=== PATIENT | female | born 1945 | race Two or more races ===

== ENCOUNTER → 2024-03-14 | Outpatient (CLI) | payer OTHER, SELFPAY ==
[2024-03-14 16:46] LABS: Basophils % (Auto) 1 % (0-2.5); Eosinophils # (Auto) 0.2 Thou/mm3 (0.0-0.5); Eosinophils % (Auto) 3 % (0-10); Hematocrit 39.7 % (36.0-46.0); Immature Granulocytes % (Auto) 1 % (0-0); Immature Granulocytes Auto 0.06 Thou/mm3 (0.00-0.00); Lymphocytes # (Auto) 1.4 Thou/mm3 (1.0-4.8); Lymphocytes % (Auto) 17 % (10-50); Mean Corpuscular HGB Conc 32.7 g/dl (31.0-37.0); Mean Corpuscular Hemoglobin 28.6 pg (25.0-35.0); Mean Corpuscular Volume 87 fL (80-100); Monocytes # (Auto) 0.8 Thou/mm3 (0.0-0.8); Monocytes % (Auto) 10 % (0-12); Neutrophils # (Auto) 5.4 Thou/mm3 (1.8-7.7); Neutrophils % (Auto) 69 % (37-80); Nucleated Red Blood Cell % 0 /100 WBC (0); Platelet Count 264 Thou/mm3 (140-440); RDW Standard Deviation 39.1 fL (36.4-46.3); Red Blood Count 4.55 Miln/mm3 (4.00-5.20); White Blood Count 7.9 Thou/mm3 (3.6-11.0)
[2024-03-14 17:02] LABS: Alanine Aminotransferase 11 U/L (10-49); Albumin, Serum 4.1 gm/dL (3.4-4.8); Albumin/Globulin Ratio 1.6 (1.2-2.2); Alkaline Phosphatase 119 U/L (46-116); Anion Gap 6 (7-16); Aspartate Amino Transferase 14 U/L (0-34); BUN/Creatinine Ratio 16 Ratio (12-20); Bilirubin,Total 0.2 mg/dL (0.3-1.2); Blood Urea Nitrogen 16 mg/dL (9-23); Calcium 9.4 mg/dL (8.3-10.6); Calcium (Corrected) 9.4 mg/dL (8.5-10.1); Carbon Dioxide 28.6 mMol/L (20.0-31.0); Chloride 104 mMol/L (98-107); Globulin 2.5 gm/dL (2.3-3.5); Glucose 124 mg/dL (74-106); Osmolality,Calculated 279 (275-295); Sodium 139 mMol/L (136-145); Total Protein 6.6 gm/dL (5.7-8.2); eGFR 58 See Note
== END | disposition home or self-care (01) ==
LOC: COPL 15:19
PROVIDERS: PCP Internal Medicine; Referring Provider Radiology Therapeutic Radiology; Visit Provider Radiology Therapeutic Radiology
DX: C49.12 Malignant neoplasm of connective and soft tissue of left upper limb, including shoulder (principal)
CPT/HCPCS: 36415; 80053; 85025

== ENCOUNTER → 2024-03-15 | Outpatient (CLI) | payer OTHER, SELFPAY ==
--- NOTE | 2024-03-15 12:00 | XR_ITS ---
Examination: CT left upper extremity with intravenous contrast 2-D sagittal and coronal reconstructions Exam date and time: March 15, 2024 1243 hours INDICATIONS: Diagnosis neoplasm connective and soft tissue left shoulder sarcoma September 2023, persistent shoulder pain beginning 2023 CTDI:vol (mGy) 81.1 DLP: (mGycm) 1287 Technique: Multiple axial images left upper extremity Intravenous contrast administered, 60 cc Isovue-370. 2-D sagittal, coronal images obtained. Low dose protocols were performed. One or more of the following dose reduction techniques were used; automated exposure control, adjustment of the mA and/or KV according to patient size, use of iterative reconstruction technique. Findings: Irregular enhancing soft tissue mass anterior lateral to the humeral head and proximal humeral shaft, transverse dimension at least 5.4 cm, anterior posterior dimension at least 2.8 cm, cephalad caudad dimension extending from above the humeral head to the proximal shaft humerus 12.8 cm This mass does not destroying the bone the humeral head or shaft Adjacent 14 mm left axillary lymph node Numerous metastatic pulmonary nodules visualized, the largest 17 mm IMPRESSION: Irregular enhancing soft tissue tumor mass anterior lateral left upper extremity from the humeral head caudad to the proximal shaft of the humerus, 5.4 x 2.8 x 12.8 cm No definite cortical bone destruction involving the humerus Partial visualization numerous metastatic pulmonary nodules
== END | disposition home or self-care (01) ==
LOC: CCTX 11:47
PROVIDERS: PCP Internal Medicine; Referring Provider Radiology Therapeutic Radiology; Visit Provider Radiology Therapeutic Radiology
DX: D16.02 Benign neoplasm of scapula and long bones of left upper limb (principal); C78.00 Secondary malignant neoplasm of unspecified lung; C49.12 Malignant neoplasm of connective and soft tissue of left upper limb, including shoulder
CPT/HCPCS: 73201; A4649; Q9967

== ENCOUNTER 2024-03-21 08:07 | Outpatient (RCR) | payer OTHER, SELFPAY ==
--- NOTE | 2024-03-01 14:18 | CTCCONSULT_ITS ---
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 Kathrine Rubalcava MD Referring physician. Balta Elise MD Reason for consultation. 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 History of Present Illness: Patient is a 78-year-old lady who noticed while lifting several months ag o discomfort involving the left shoulder and ultrasound 11/02/2023 shows soft tissue mass with vascular ity. Preop imaging 11/19/2023 reportedly showed heterogeneous soft tissue mass and was referred to Dr Jakob Victor in [place] who performed radical resection of the left shoulder soft tissue mass 12/26 which was 6.3 cm the longest dimension. 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 According to pathology reviewed at [place] [facility] was negative corroborating no support for Albert's with other immunohistochemical support for rhabdo myosarcoma or melanoma. Given the size AJCC pT2. Pt now referred for adjuvant treatment at the [facility]. The past few weeks patient has noted a growth marble sized by the left humerus area which was brought to the attention of Dr. Elise, according to patient. Past Medical History: History of diabetes mellitus allergies Meds. Albuterol atorvastatin Flexeril glipizide Allergies none to meds Social History: Patient retired from working in schools denies smoking drinking Review of Systems: Has had pain in left arm since surgery associate with apparent recurrence. Physical Exam: General: Adequate nourished appearing lady in no acute distress HEENT: Atraumatic normocephalic extraocular intact no oral lesion no cervical or supraclavicular adilia opathy CV: Chest clear to auscultation heart regular rate and rhythm ABD: Soft no guarding or tenderness EXT: Surgical changes left shoulder area with about 4 x 5 cm tumor in the proximal lateral humerus benavides ggestive of recurrence. Tender. Assessment: 1. 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 6.3 cm longest dimension high-grade angiolymphatic invasion. PT2 2. Reportedly with close margins, clinically appears to be recurring with 2 x 3 cm tender mass in th e proximal left lateral humerus. 3. I ordered imaging studies of the shoulder and proximal humerus along with PET but I believe that a biopsy need to be done to confirm the suspected recurrence. 4. Attempted to call Dr. Elise earlier which I hope to hear from later regarding need for biopsy 5. Placed patient on tramadol as patient is having significant pain in the left shoulder arm area. 6. Dr. Hardwick medical oncologist has been consulted. Cc: Kathrine Rubalcava MD Electronically signed by: Reji Hsu MD, DABR 03/01/2024 2:16 PM
== END 2024-03-28 23:59 | disposition home or self-care (01) ==
LOC: SCTC 08:07
PROVIDERS: PCP Internal Medicine; Referring Provider Orthopaedic Surgery; Visit Provider Radiology Therapeutic Radiology
DX: C49.12 Malignant neoplasm of connective and soft tissue of left upper limb, including shoulder (principal); G89.3 Neoplasm related pain (acute) (chronic)
CPT/HCPCS: 99213; G0463

== ENCOUNTER → 2024-03-30 | Outpatient (CLI) | payer OTHER, SELFPAY ==
--- NOTE | 2024-03-30 10:15 | XR_ITS ---
EXAMINATION: PET/CT FUSION SKULL TO THIGH EXAM DATE AND TIME: March 30, 2024 1112 hours INDICATIONS: Diagnosis neoplasm connective and soft tissue left shoulder, sarcoma September 2023, staging, soft tissue mass 5.4 x 2.8 cm anterior lateral to the left humeral head and proximal humeral shaft on CT upper extremity March 15, 2024 CTDI:vol (mGy) 8.17 DLP: (mGycm) 745.91 PROCEDURE: 16.79 mCi FDG was administered intravenously To allow for distribution and uptake of radiotracer, the patient was allowed to rest quietly in a shielded room. Imaging was performed on an integrated 16-slice PET/CT scanner, with scanning from the skull base to the mid thigh. Serum blood glucose at the time of the injection was measured 174 mg/dL. CT scanning was performed without oral or intravenous contrast material. FINDINGS: Head and Neck: There is no ade hypermetabolism in the neck. The visualized portions of the brain are normal in appearance on CT. Chest: Intensely hypermetabolic soft tissue mass anterior and lateral to the left humeral head and upper left humerus again noted, at least 6.5 x 5.4 x 14 cm Numerous hypermetabolic left axillary lymph nodes, the largest 22 mm, 24 mm Numerous hypermetabolic metastatic pulmonary nodules, the largest in the left lower lobe 20 mm, as well as hypermetabolic mass in the right middle lobe 5.7 x 5.2 cm Large right pleural effusion Hypermetabolic left hilar lymphadenopathy Abdomen and Pelvis: Subtle hypermetabolic area in the posterior right lobe of the liver axial image 132, 25 mm Anterior precaval mesenteric lymphadenopathy, the largest lymph nodes 25 mm, 14 mm Musculoskeletal: Multiple hypermetabolic osseous foci including L4 T11, T10 T1, right posterior iliac bone right sacrum S1, left acetabulum, bilateral anterior pubic rami, proximal left humeral shaft IMPRESSION: Intensely hypermetabolic soft tissue mass anterior and lateral to the left humeral head and upper left humerus Metastatic left axillary lymphadenopathy Too numerous to count metastatic Hypermetabolic left hilar lymphadenopathy Large right pleural effusion amenable to thoracentesis Suspicious for hypermetabolic posterior right lobe liver lesion Metastatic precaval mesenteric lymphadenopathy Widespread osseous metastatic disease pulmonary nodules, including 5.7 x 5.2 cm pulmonary mass in the right middle lobe
== END | disposition home or self-care (01) ==
PROVIDERS: PCP Internal Medicine; Referring Provider Radiology Therapeutic Radiology; Visit Provider Radiology Therapeutic Radiology
DX: R59.0 Localized enlarged lymph nodes (principal); J90 Pleural effusion, not elsewhere classified; R22.42 Localized swelling, mass and lump, left lower limb; C78.01 Secondary malignant neoplasm of right lung; C77.3 Secondary and unspecified malignant neoplasm of axilla and upper limb lymph nodes; C49.12 Malignant neoplasm of connective and soft tissue of left upper limb, including shoulder
CPT/HCPCS: 78815; A9552

== ENCOUNTER 2024-04-01 10:51 | Inpatient (IN) | payer OTHER, MEDICARE, SELFPAY ==
[2024-04-01] VITALS (8 sets, daily range): BP systolic 110–160; BP diastolic 63–78; PULSE 97–125; RESP 18–25; TEMP 36.2–36.9; O2SAT 89–98; BMI 29.2; BMI 31.6
--- NOTE | 2024-04-01 12:33 | XR_ITS ---
Examination: PA chest single view Technique: Upright PA chest single view Exam date and time: April 01, 2024 1248 hrs. Comparison PET/CT scan March 30, 2024 Indications: SOB today, diagnosis neoplasm connective and soft tissue left shoulder, sarcoma Findings: Multiple bilateral metastatic pulmonary nodules noted, please see the PET/CT scan report March 30, 2024 Large right pleural effusion Moderate left pleural effusion Mild enlargement cardiac contour Moderate osteopenia Impression: Extensive pulmonary nodular metastatic disease Please see the PET/CT scan report March 30, 2024 Large right moderate left malignant pleural effusions
--- NOTE | 2024-04-01 12:33 | EKG_ITS ---
[facility] Test Date: 2024-04-01 Pat Name: KOBY SUTHERLAND Department: Room: - Gender: Female Clinical Psychiatrist: : 1945 Requested By: Dori Sanchez Order Number: [id number] Reading MD: Dori Sanchez Measurements Intervals [place] Rate: 129 P: 0 CT: 137 QRS: -18 QRSD: 82 T: -2 QT: 301 QTc: 441 Interpretive Statements SINUS TACHYCARDIA VOLTAGE CRITERIA FOR LVH [MEETS CRITERIA IN ONE OF: R(aVL), S(V1), R(V5), R(V5/V6)+S(V1)] POSSIBLE ANTERIOR MYOCARDIAL INFARCTION , OF INDETERMINATE AGE [30 ms Q WAVE IN V3/V4, OR R < 0.2 mV IN V4] INFERIOR MYOCARDIAL INFARCTION , PROBABLY OLD [40+ ms Q WAVE AND/OR ST/T ABNORMALITY IN II/aVF] No previous ECG available for comparison /store/S0/[id number]/ecg/[id number].pdf
--- NOTE | 2024-04-01 12:34 | PD.EDSOB ---
ED SOB =RME/HPI General Chief Complaint: Shortness of Breath/Dyspnea Stated Complaint: SOB WITH WITH HX LUNG CANCER Time Seen by Provider: 04/01/24 11:59 Arrival date/time: 04/01/24 10:51 This is a 78-year-old female that comes in with complaints of shortness of breath. 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 Preop imaging 11/19/2023 reportedly showed heterogeneous soft tissue mass and was referred to Dr. Gosia Victor in [place] who performed radical resection of the left shoulder soft tissue mass 12/27/2023 which was 6.3 cm the longest dimension. 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 According to pathology reviewed at [place] [facility] was negative corroborating no support for Albert's with other immunohistochemical support for rhabdomyosarcoma or melanoma. Given the size AJCC pT2. Pt now referred for adjuvant treatment at the cancer center. Patient has a past medical history of diabetes mellitus. Patient complains of nausea and vomiting. Related Data Allergies Allergy/AdvReac Type Severity Reaction Status Date / Time cantaloupe Allergy Intermediate Rash Verified 04/01/24 10:52 shrimp Allergy Intermediate Rash Verified 04/01/24 10:53 Course Orders Category Date Time Status Bedside COVID-19 Antigen Test NOW Care 04/01/24 12:33 Active Bedside Influenza A&B Antigen Test NOW Care 04/01/24 12:33 Active EKG (ED ONLY) *Do not use* NOW Care 04/01/24 12:34 Active EKG (ED Only) Stat Exams 04/01/24 12:33 Ordered XR chest 1V Stat Exams 04/01/24 12:33 Ordered BNP [B-Type Natriuretic Peptide] Stat Lab 04/01/24 12:33 Ordered Blood Culture (Lab) Stat Lab 04/01/24 12:33 Ordered CBC Stat Lab 04/01/24 12:33 Ordered Comprehensive Metabolic Panel Stat Lab 04/01/24 12:33 Ordered Lactate (Lactic Acid) Stat Lab 04/01/24 12:34 Ordered Procalcitonin Stat Lab 04/01/24 12:34 Ordered TSH [Thyroid Stimulating Hormone] Stat Lab 04/01/24 12:33 Ordered Troponin I Stat Lab 04/01/24 12:33 Ordered Vital Signs Vital signs: Vital Signs Temperature 98.0 F 04/01/24 12:32 Pulse Rate 125 H 04/01/24 12:32 Respiratory Rate 18 04/01/24 12:32 Blood Pressure 110/73 04/01/24 12:32 Pulse Oximetry (%) 94 L 04/01/24 12:32 Oxygen Delivery Method Room Air 04/01/24 12:32 Discharge Plan Patient/Caregiver Discharge Instructions Print Language: Yakut
--- NOTE | 2024-04-01 12:38 | PD.EDRME ---
Rapid Medical Screening Exam RME Arrival date/time: 04/01/24 10:51 This is a 78-year-old female that comes in with complaints of shortness of breath. 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 Preop imaging 11/19/2023 reportedly showed heterogeneous soft tissue mass and was referred to Dr. Gosia Victor in [place] who performed radical resection of the left shoulder soft tissue mass 12/27/2023 which was 6.3 cm the longest dimension. 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 According to pathology reviewed at [place] [facility] was negative corroborating no support for Albert's with other immunohistochemical support for rhabdomyosarcoma or melanoma. Given the size AJCC pT2. Pt now referred for adjuvant treatment at the cancer center. Patient has a past medical history of diabetes mellitus. Patient complains of nausea and vomiting. Patient denies fever and diarrhea. I have greeted and performed a focused initial assessment of this patient. Initial appropriate labs ordered at this time. A comprehensive ED assessment and evaluation of the patient and analysis of all test and completion of medical decision making process will be conducted by additional ED provider. Chief Complaint: Shortness of Breath/Dyspnea Time Seen by Provider: 04/01/24 11:59 Vital signs: Vital Signs Temperature 98.0 F 04/01/24 12:32 Pulse Rate 125 H 04/01/24 12:32 Respiratory Rate 18 04/01/24 12:32 Blood Pressure 110/73 04/01/24 12:32 Pulse Oximetry (%) 94 L 04/01/24 12:32 Oxygen Delivery Method Room Air 04/01/24 12:32
[2024-04-01] MEDS: ONDANSETRON ODT 4 MG TABRAP PO (12:53)
--- NOTE | 2024-04-01 13:29 | PC.NURSE ---
PT REPORTS THAT SHE BECAME SOB YESTERDAY, DOES HAVE HISTORY OF ASTHMA. REPORTS THAT SHE RECENTLY GOT SURGERY ON HER RIGHT ARM FOR A SARCOMA. VISITOR AT BEDSIDE ATTENTIVE AT
[2024-04-01 13:30] LABS: Lactate (Lactic Acid) 2.9 mMol/L (0.4-2.0)
[2024-04-01 13:34] LABS: Basophils % (Auto) 0 % (0-2.5); Eosinophils % (Auto) 0 % (0-10); Hematocrit 32.6 % (36.0-46.0); Hemoglobin 10.6 g/dL (12.0-16.0); Immature Granulocytes % (Auto) 1 % (0-0); Immature Granulocytes Auto 0.17 Thou/mm3 (0.00-0.00); Lymphocytes % (Auto) 6 % (10-50); Mean Corpuscular HGB Conc 32.5 g/dl (31.0-37.0); Mean Corpuscular Hemoglobin 27.5 pg (25.0-35.0); Mean Corpuscular Volume 85 fL (80-100); Monocytes # (Auto) 1.4 Thou/mm3 (0.0-0.8); Monocytes % (Auto) 9 % (0-12); Neutrophils # (Auto) 13.4 Thou/mm3 (1.8-7.7); Neutrophils % (Auto) 84 % (37-80); Nucleated Red Blood Cell % 0 /100 WBC (0); Platelet Count 480 Thou/mm3 (140-440); RDW Standard Deviation 39.6 fL (36.4-46.3); Red Blood Count 3.86 Miln/mm3 (4.00-5.20)
[2024-04-01 13:51] LABS: B-Type Natriuretic Peptide 53 pg/mL (0-100)
[2024-04-01] MEDS: SODIUM CHLORIDE 0.9% 1000 ML 1,000 ML 999 ML IV (13:53)
[2024-04-01 14:00] LABS: Alanine Aminotransferase 13 U/L (10-49); Albumin, Serum 4.2 gm/dL (3.4-4.8); Albumin/Globulin Ratio 1.4 (1.2-2.2); Alkaline Phosphatase 110 U/L (46-116); Anion Gap 10 (7-16); Aspartate Amino Transferase 12 U/L (0-34); BUN/Creatinine Ratio 16 Ratio (12-20); Bilirubin,Total 0.5 mg/dL (0.3-1.2); Blood Urea Nitrogen 14 mg/dL (9-23); Calcium 9.2 mg/dL (8.3-10.6); Calcium (Corrected) 9.2 mg/dL (8.5-10.1); Carbon Dioxide 24.1 mMol/L (20.0-31.0); Chloride 97 mMol/L (98-107); Creatinine (Component) 0.9 mg/dL (0.6-1.3); Estimated Creatinine Clearance 52.6 mL/min (>60); Globulin 2.9 gm/dL (2.3-3.5); Glucose 236 mg/dL (74-106); Osmolality,Calculated 271 (275-295); Potassium 4.3 mMol/L (3.4-5.1); Procalcitonin 0.14 ng/ml (0.0-0.49); Sodium 131 mMol/L (136-145); Thyroid Stimulating Hormone 1.96 uIU/mL (0.55-4.78); Total Protein 7.1 gm/dL (5.7-8.2); Troponin I < 0.020 ng/mL (0.0-0.045); eGFR > 60 See Note
--- NOTE | 2024-04-01 14:41 | PD.EDSOB ---
ED SOB =RME/HPI General Chief Complaint: Shortness of Breath/Dyspnea Stated Complaint: SOB WITH WITH HX LUNG CANCER Time Seen by Provider: 04/01/24 11:59 Arrival date/time: 04/01/24 10:51 This is a 78-year-old female that comes in with complaints of shortness of breath. 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 Preop imaging 11/19/2023 reportedly showed heterogeneous soft tissue mass and was referred to Dr. Gosia Victor in [place] who performed radical resection of the left shoulder soft tissue mass 12/27/2023 which was 6.3 cm the longest dimension. 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 According to pathology reviewed at [place] [facility] was negative corroborating no support for Albert's with other immunohistochemical support for rhabdomyosarcoma or melanoma. Given the size AJCC pT2. Pt now referred for adjuvant treatment at the cancer center. Patient has a past medical history of diabetes mellitus. Patient complains of nausea and vomiting. Patient denies fever and diarrhea. RME / HPI RME / HPI Narrative: 04/01/24 10:51 This is a 78-year-old female that comes in with complaints of shortness of breath. 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 Preop imaging 11/19/2023 reportedly showed heterogeneous soft tissue mass and was referred to Dr. Gosia Neal who performed radical resection of the left shoulder soft tissue mass 12/27/2023 which was 6.3 cm the longest dimension. 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 According to pathology reviewed at [place] [facility] was negative corroborating no support for Albert's with other immunohistochemical support for rhabdomyosarcoma or melanoma. Given the size AJCC pT2. Pt now referred for adjuvant treatment at the cancer center. Patient has a past medical history of diabetes mellitus. Patient complains of nausea and vomiting. Patient denies fever and diarrhea. I have greeted and performed a focused initial assessment of this patient. Initial appropriate labs ordered at this time. A comprehensive ED assessment and evaluation of the patient and analysis of all test and completion of medical decision making process will be conducted by additional ED provider. Related Data Home Medications ?Medication ?Instructions ?Recorded ?Confirmed albuterol sulfate 90 mcg/actuation 1 puff inhalation Q8HR 04/01/24 04/01/24 aerosol inhaler aspirin 81 mg chewable tablet 81 mg PO Q12H 04/01/24 04/01/24 cyclobenzaprine 5 mg tablet 5 mg PO Q12H 04/01/24 04/01/24 meloxicam 15 mg tablet 15 mg PO DAILY 04/01/24 04/01/24 Previous Rx's ?Medication ?Instructions ?Recorded amoxicillin 875 mg-potassium 1 tab PO BID 5 days #10 tabs 04/05/24 clavulanate 125 mg tablet doxycycline hyclate 100 mg capsule 100 mg PO BID 5 days #10 caps 04/05/24 hydrocodone 5 mg-acetaminophen 325 2 tab PO Q6H PRN pain (scale score 04/05/24 mg tablet 4-6) 5 days #30 tabs sennosides 8.6 mg tablet (Senna 8.6 mg PO QDAY PRN constipation 15 04/05/24 Laxative) days #15 tabs Allergies Allergy/AdvReac Type Severity Reaction Status Date / Time cantaloupe Allergy Intermediate Rash Verified 04/01/24 10:52 shrimp Allergy Intermediate Rash Verified 04/01/24 10:53 Review of Systems Review of Systems Systems Reviewed: All systems reviewed, normal except as documented Past Medical History Surgical History OTHER SURGICAL HX: Recent radical resection of left proximal upper extremity malignancy.. Social History SOCIAL: Retired from Past Medical History Comments PMH COMMENT: History of asthma bronchitis diabetes mellitus 2 ED Exam General General appearance: Present alert and in no apparent distress Head Head exam: Present atraumatic Eye Eye exam: Present normal appearance, PERRL and EOMI ENT ENT exam: Present normal exam, normal oropharynx and mucous membranes moist Neck Neck exam: Present normal inspection, full ROM and trachea midline Chest Chest inspection: Present normal inspection and symmetric chest wall rise Respiratory Respiratory exam: Present other (diminished at bases ) Cardiovascular Cardiovascular exam: Present regular rate and normal rhythm Abdominal Exam Abdominal exam: Present soft Extremities Exam Extremities exam: Present normal inspection and full ROM Back Exam Back exam: Present normal inspection and full ROM Neurological Exam Neurological exam: Present alert, oriented X3 and CN II-XII intact Psychiatric Psychiatric exam: Present normal affect and normal mood Skin Skin exam: Present warm, dry, intact and normal color Course Quality Measures none Orders Category Date Time Status Admit to Inpatient Status Routine Admission 04/01/24 15:02 Active Bedside Blood Glucose ACHS Care 04/01/24 14:59 Completed Bedside COVID-19 Antigen Test NOW Care 04/01/24 12:33 Completed Bedside Influenza A&B Antigen Test NOW Care 04/01/24 12:33 Completed COVID-19 Screening Questionnaire NOW Care 04/01/24 14:56 Completed Decision to Admit X1 Care 04/01/24 14:56 Completed EKG (ED ONLY) *Do not use* NOW Care 04/01/24 12:34 Completed IV [Insert IV] STAT Care 04/01/24 13:38 Completed Diet Carbohydrate Consistent Diet 04/01/24 Dinner Active EKG (ED Only) Stat Exams 04/01/24 12:33 Draft XR chest 1V Stat Exams 04/01/24 12:33 Completed BNP [B-Type Natriuretic Peptide] Stat Lab 04/01/24 13:03 Completed Blood Culture (Lab) Stat Lab 04/01/24 13:03 Completed CBC Stat Lab 04/01/24 13:03 Completed Comprehensive Metabolic Panel Stat Lab 04/01/24 13:03 Completed Lactate (Lactic Acid) Stat Lab 04/01/24 13:03 Completed Lactate (Lactic Acid) Stat Lab 04/01/24 15:46 Completed Procalcitonin Stat Lab 04/01/24 13:03 Completed TSH [Thyroid Stimulating Hormone] Stat Lab 04/01/24 13:03 Completed Troponin I Stat Lab 04/01/24 13:03 Completed Acetaminophen Tab [Tylenol Tab] Med 04/01/24 14:59 Discontinued 650 mg PO Q6HR PRN Ondansetron Inj [Zofran Inj] Med 04/01/24 14:59 Discontinued 4 mg IV Q4HR PRN Ondansetron Odt [Zofran Odt] Med 04/01/24 12:37 Discontinued 4 mg PO X1 ONE Piper/Tazo 3.375 gm [Zosyn] Med 04/01/24 22:00 Discontinued 3.375 gm in 50 ml IV Q8HR Piper/Tazo Inj [Zosyn Inj] 3.375 gm Med 04/01/24 14:56 Discontinued Sodium Chloride 0.9% (P) [Ns 0.9% (P)] 50 ml IV X1 Sodium Chloride 0.9% 1000 ml [Ns] 1,000 ml Med 04/01/24 13:38 Discontinued IV 999 mls/hr Code Status Routine Oth 04/01/24 14:59 Completed Vital Signs Vital signs: Vital Signs Temperature 98.0 F 04/01/24 12:32 Pulse Rate 125 H 04/01/24 12:32 Respiratory Rate 18 04/01/24 12:32 Blood Pressure 110/73 04/01/24 12:32 Pulse Oximetry (%) 94 L 04/01/24 12:32 Oxygen Delivery Method Room Air 04/01/24 12:32 Procedures -ED EKG Interpretation #1: Date of EK04/01/24 Time of EK:41 Rate: 129 Interpretation: Interpreted by me (sinus tachycardia ) EKG Impression: No ectopy, Normal QRS and Normal intervals Shortness of Breath / Dyspnea MDM Narrative MDM Narrative:: chets x ray shows: Findings: Multiple bilateral metastatic pulmonary nodules noted, please see the PET/CT scan report March 30, 2024 Large right pleural effusion Moderate left pleural effusion Mild enlargement cardiac contour Moderate osteopenia Impression: Extensive pulmonary nodular metastatic disease Please see the PET/CT scan report March 30, 2024 Large right moderate left malignant pleural effusions PET SCAN done 03/30/24: FINDINGS: Head and Neck: There is no ade hypermetabolism in the neck. The visualized portions of the brain are normal in appearance on CT. Chest: Intensely hypermetabolic soft tissue mass anterior and lateral to the left humeral head and upper left humerus again noted, at least 6.5 x 5.4 x 14 cm Numerous hypermetabolic left axillary lymph nodes, the largest 22 mm, 24 mm Numerous hypermetabolic metastatic pulmonary nodules, the largest in the left lower lobe 20 mm, as well as hypermetabolic mass in the right middle lobe 5.7 x 5.2 cm Large right pleural effusion Hypermetabolic left hilar lymphadenopathy Abdomen and Pelvis: Subtle hypermetabolic area in the posterior right lobe of the liver axial image 132, 25 mm Anterior precaval mesenteric lymphadenopathy, the largest lymph nodes 25 mm, 14 mm Musculoskeletal: Multiple hypermetabolic osseous foci including L4 T11, T10 T1, right posterior iliac bone right sacrum S1, left acetabulum, bilateral anterior pubic rami, proximal left humeral shaft IMPRESSION: Intensely hypermetabolic soft tissue mass anterior and lateral to the left humeral head and upper left humerus Metastatic left axillary lymphadenopathy Too numerous to count metastatic Hypermetabolic left hilar lymphadenopathy Large right pleural effusion amenable to thoracentesis Suspicious for hypermetabolic posterior right lobe liver lesion Metastatic precaval mesenteric lymphadenopathy Widespread osseous metastatic disease pulmonary nodules, including 5.7 x 5.2 cm pulmonary mass in the right middle lobe Labs significant for white count of 16, hemoglobin 10.6 with a hematocrit of 32.6, platelet count of 480 neutrophil 84, BMP shows a sodium of 131, chloride of 97 glucose 236 lactic acid of 2.9, BNP of 53, troponin less than 0.020 and procalcitonin 0.14. Patient very fatigued and winded when ambulating. COVID and influenza negative.. Upon arrival on room air patient was oxygen saturations of 90 to 93%. Patient put on 2 L nasal cannula. Will cover patient empirically with Zosyn for possible pneumonia. Patient has a large effusion to the right side. It will likely need to be tapped. I called Dr. Callahan who agreed to admit patient to the hospital. Patient data External records reviewed:: [facility] previous records Clinical information provided by:: patient Social determinants that could affect healthcare access:: none Patient has the following chronic illnesses:: see hpi How is presenting disease/condition affected by chronic disease/condition?: exacerbated by Evaluation data The following diagnostics were reviewed and interpreted by me:: lab results, radiology exam(s) and EKG tracing(s) Lab and/or radiology exams considered but not ordered:: none Interpretation Summary: see note Medications / Prescriptions Medications or Prescriptions considered but not ordered:: none Medication administrations:: Medication Administration History Discontinued Medications Acetaminophen (Acetaminophen 325 Mg Tablet) 650 mg PO Q6HR PRN PRN Reason: Fever > 100.4 Stop: 05/01/24 14:58 Last Admin: 04/03/24 03:20 Dose: 650 mg Documented By: LOVE Acetaminophen (Acetaminophen 325 Mg Tablet) 650 mg PO Q6HR PRN PRN Reason: Fever > 100.4 or pain 1-3 Stop: 05/01/24 14:58 Last Admin: 04/05/24 03:21 Dose: 650 mg Documented By: Comments: PER PT REQUEST Admin: 04/04/24 13:15 Dose: 650 mg Documented By: RYAN Dextrose (Dextrose 50%-Water Inj 50 Ml Syringe) 50 ml IV Q15MIN PRN PRN Reason: BG <50 OR BG <70 & pt unresponsive Stop: 05/01/24 17:52 Furosemide (Furosemide Inj 10 Mg/Ml Vial 2 Ml) 20 mg IVP X1 ONE Stop: 04/02/24 00:18 Last Admin: 04/02/24 00:24 Dose: 20 mg Documented By: LOVE Glucagon (Glucagon Inj 1 Mg Vial) 1 mg IM Q15MIN PRN PRN Reason: BG <70, and no IV access Heparin Sodium (Porcine) (Heparin Sod Inj 5000 Unit/Ml Vial) 5,000 unit SC Q8HR YANETH Stop: 04/16/24 17:44 Last Admin: 04/05/24 05:32 Dose: 5,000 unit Documented By: Co-signed By: ANTONIO Admin: 04/04/24 22:41 Dose: 5,000 unit Documented By: Co-signed By: SABRINA Admin: 04/04/24 13:15 Dose: 5,000 unit Documented By: RYAN Co-signed By: Admin: 04/03/24 13:39 Dose: 5,000 unit Documented By: RYAN Co-signed By: NAIDA Admin: 04/03/24 04:46 Dose: 5,000 unit Documented By: LOVE Co-signed By: SEBASTIAN Admin: 04/02/24 20:49 Dose: 5,000 unit Documented By: LOVE Co-signed By: CG Admin: 04/02/24 17:52 Dose: 5,000 unit Documented By: THAO Co-signed By: NATHAN Hydromorphone HCl (Hydromorphone Inj 2 Mg/Ml Vial) 0.5 mg IVP Q2HR PRN; Protocol PRN Reason: Shortness Of Breath, pain Stop: 04/08/24 15:59 Last Admin: 04/04/24 11:33 Dose: 0.5 mg Documented By: Admin: 04/04/24 08:08 Dose: 0.5 mg Documented By: Admin: 04/04/24 05:07 Dose: 0.5 mg Documented By: Admin: 04/04/24 01:02 Dose: 0.5 mg Documented By: Admin: 04/03/24 16:21 Dose: 0.5 mg Documented By: RYAN Hydromorphone HCl (Hydromorphone Inj 2 Mg/Ml Vial) 1 mg IVP Q4HR PRN; Protocol PRN Reason: Shortness Of Breath, pain Stop: 04/08/24 15:53 Last Admin: 04/05/24 07:38 Dose: 1 mg Documented By: Admin: 04/05/24 03:35 Dose: 1 mg Documented By: Admin: 04/04/24 22:34 Dose: 1 mg Documented By: Admin: 04/04/24 14:37 Dose: 1 mg Documented By: RYAN Sodium Chloride (Ns) 1,000 mls @ 999 mls/hr IV .Q1H1M ONE Stop: 04/01/24 14:38 Last Infusion: 04/01/24 14:50 Dose: Infused Documented By: Admin: 04/01/24 13:53 Dose: 999 mls/hr Documented By: JUAN Piperacillin Sod/Tazobactam (Sod 3.375 gm/ Sodium Chloride) 50 mls @ 100 mls/hr IV X1 ONE Stop: 04/01/24 15:25 Last Infusion: 04/01/24 15:50 Dose: Infused Documented By: Admin: 04/01/24 15:20 Dose: 100 mls/hr Documented By: JUAN Piperacillin/Tazobactam/Dextrose (Zosyn) 3.375 gm in 50 mls @ 12.5 mls/hr IV Q8HR YANETH Stop: 04/08/24 21:59 Last Admin: 04/05/24 05:28 Dose: 12.5 mls/hr Documented By: Infusion: 04/05/24 02:37 Dose: Infused Documented By: Admin: 04/04/24 22:37 Dose: 12.5 mls/hr Documented By: Infusion: 04/04/24 17:16 Dose: Infused Documented By: Admin: 04/04/24 13:16 Dose: 12.5 mls/hr Documented By: Infusion: 04/04/24 09:10 Dose: Infused Documented By: Admin: 04/04/24 05:07 Dose: 12.5 mls/hr Documented By: Infusion: 04/04/24 01:03 Dose: Infused Documented By: Admin: 04/03/24 21:03 Dose: 12.5 mls/hr Documented By: Infusion: 04/03/24 17:39 Dose: Infused Documented By: Admin: 04/03/24 13:39 Dose: 12.5 mls/hr Documented By: Infusion: 04/03/24 13:38 Dose: Infused Documented By: Admin: 04/03/24 04:46 Dose: 12.5 mls/hr Documented By: Infusion: 04/03/24 00:48 Dose: Infused Documented By: Admin: 04/02/24 20:48 Dose: 12.5 mls/hr Documented By: Infusion: 04/02/24 18:43 Dose: Infused Documented By: Admin: 04/02/24 14:43 Dose: 12.5 mls/hr Documented By: Infusion: 04/02/24 09:34 Dose: Infused Documented By: Admin: 04/02/24 05:34 Dose: 12.5 mls/hr Documented By: Infusion: 04/02/24 00:46 Dose: Infused Documented By: Admin: 04/01/24 20:46 Dose: 12.5 mls/hr Documented By: LOVE Vancomycin HCl (Vancomycin/Water 1250 Mg Ivpb) 250 mls @ 120 mls/hr IV Q24H YANETH Stop: 04/11/24 13:59 Last Admin: 04/04/24 15:36 Dose: 120 mls/hr Documented By: Infusion: 04/04/24 15:36 Dose: Infused Documented By: Admin: 04/04/24 14:32 Dose: 120 mls/hr Documented By: RYAN Vancomycin HCl 750 mg/ Sodium (Chloride) 250 mls @ 200 mls/hr IV QDAY@1400 YANETH; Protocol Stop: 04/12/24 13:59 Insulin Glargine (Insulin Glargine (Lantus) 5 Unit/0.05 Ml (Per 5 Units)) 10 unit SC QDAY YANETH Stop: 05/01/24 17:59 Last Admin: 04/05/24 09:40 Dose: 10 unit Documented By: RYAN Co-signed By: THAO Admin: 04/04/24 08:07 Dose: 10 unit Documented By: RYAN Co-signed By: GC Admin: 04/03/24 08:00 Dose: 10 unit Documented By: RYAN Co-signed By: CV Admin: 04/02/24 08:10 Dose: 10 unit Documented By: THAO Co-signed By: NATHAN Admin: 04/01/24 20:54 Dose: Not Given Documented By: LOVE Non-Admin Reason: Patient Refused Insulin Human Lispro (Insulin Lispro (Admelog) 1 Unit/0.01 Ml Unit) 0 unit SC ACHS [facility]; Protocol Stop: 05/01/24 20:59 Last Admin: 04/05/24 11:39 Dose: 4 unit Documented By: RYAN Co-signed By: BF Admin: 04/05/24 07:37 Dose: 4 unit Documented By: RYAN Co-signed By: BF Admin: 04/04/24 20:27 Dose: 4 unit Documented By: Co-signed By: AM Admin: 04/04/24 17:28 Dose: 4 unit Documented By: RYAN Co-signed By: GC Admin: 04/04/24 11:32 Dose: 4 unit Documented By: KD Co-signed By: SN Admin: 04/04/24 07:34 Dose: 4 unit Documented By: KD Co-signed By: SN Admin: 04/03/24 21:03 Dose: 2 unit Documented By: MP Co-signed By: MA Admin: 04/03/24 16:39 Dose: 4 unit Documented By: RYAN Co-signed By: CS Admin: 04/03/24 12:28 Dose: 4 unit Documented By: RYAN Co-signed By: CV Admin: 04/03/24 07:59 Dose: 2 unit Documented By: RYAN Co-signed By: RADHA Admin: 04/02/24 20:43 Dose: 2 unit Documented By: LOVE Co-signed By: KEMAR Admin: 04/02/24 17:52 Dose: 4 unit Documented By: THAO Co-signed By: NATHAN Admin: 04/02/24 11:56 Dose: 2 unit Documented By: THAO Co-signed By: SHILOH Admin: 04/02/24 08:09 Dose: 6 unit Documented By: THAO Co-signed By: NATHAN Admin: 04/01/24 20:51 Dose: 4 unit Documented By: LOVE Co-signed By: KEMAR Lidocaine HCl (Lidocaine Inj Pf 1% 30 Ml Vial) Confirm Administered Dose 30 ml .ROUTE .STK-MED ONE Stop: 04/04/24 08:50 Lorazepam (Lorazepam 2 Mg/Ml Vial) 0.5 mg IVP Q6HR PRN PRN Reason: ANXIETY Stop: 04/08/24 17:07 Last Admin: 04/05/24 09:41 Dose: 0.5 mg Documented By: Admin: 04/04/24 15:36 Dose: 0.5 mg Documented By: Admin: 04/04/24 08:29 Dose: 0.5 mg Documented By: Admin: 04/03/24 17:31 Dose: 0.5 mg Documented By: RYAN Ondansetron HCl (Ondansetron Odt 4 Mg Tabrap) 4 mg PO X1 ONE; Protocol Stop: 04/01/24 12:38 Last Admin: 04/01/24 12:53 Dose: 4 mg Documented By: Ondansetron HCl (Ondansetron Inj 2 Mg/Ml Inj 2 Ml) 4 mg IV Q4HR PRN; Protocol PRN Reason: NAUSEA OR VOMITING Stop: 05/01/24 14:58 Pharmacy Consult (Vancomycin Pharmacy To Dose 1 Each Each) 1 each IV QDAY PRN PRN Reason: PROTOCOL Stop: 05/04/24 12:59 Polyethylene Glycol (Polyethylene Glycol 17 Gm Packet) 17 gm PO QDAY YANETH Stop: 05/03/24 09:59 Last Admin: 04/05/24 09:41 Dose: 17 gm Documented By: Admin: 04/04/24 08:08 Dose: 17 gm Documented By: Admin: 04/03/24 11:26 Dose: 17 gm Documented By: RYAN Sennosides (Senna Tablet) 1 tab PO QDAY YANETH; Protocol Stop: 05/03/24 09:59 Last Admin: 04/05/24 09:40 Dose: 1 tab Documented By: Admin: 04/04/24 08:19 Dose: Not Given Documented By: RYAN Non-Admin Reason: Patient Refused Admin: 04/03/24 11:26 Dose: 1 tab Documented By: RYAN Sennosides (Senna Tablet) 1 tab PO X1 ONE; Protocol Stop: 04/04/24 12:23 Last Admin: 04/04/24 13:16 Dose: 1 tab Documented By: RYAN Tramadol HCl (Tramadol Hcl 50 Mg Tablet) 50 mg PO Q6HR PRN PRN Reason: PAIN Stop: 04/06/24 19:22 Tramadol HCl (Tramadol Hcl 50 Mg Tablet) 100 mg PO Q6HR PRN; Protocol PRN Reason: PAIN Stop: 04/06/24 19:29 Last Admin: 04/04/24 07:35 Dose: 100 mg Documented By: Admin: 04/03/24 13:52 Dose: 100 mg Documented By: Admin: 04/03/24 04:33 Dose: 100 mg Documented By: Admin: 04/02/24 22:33 Dose: 100 mg Documented By: Admin: 04/02/24 16:02 Dose: 100 mg Documented By: Admin: 04/02/24 06:12 Dose: 100 mg Documented By: Admin: 04/01/24 19:37 Dose: 100 mg Documented By: LOVE Tramadol HCl (Tramadol Hcl 50 Mg Tablet) 100 mg PO X1 ONE Stop: 04/01/24 23:59 Last Admin: 04/02/24 00:05 Dose: 100 mg Documented By: LOVE Tramadol HCl (Tramadol Hcl 50 Mg Tablet) 50 mg PO Q6HR [facility] Stop: 04/09/24 11:59 Last Admin: 04/05/24 11:34 Dose: 50 mg Documented By: Admin: 04/05/24 06:03 Dose: 50 mg Documented By: Admin: 04/05/24 00:55 Dose: 50 mg Documented By: Admin: 04/04/24 19:17 Dose: 50 mg Documented By: Admin: 04/04/24 12:15 Dose: 50 mg Documented By: RYAN see amr Consultations Consultation(s) initiated? (list below): No Diagnosis Shortness of Breath Differential Diagnosis: congestive heart failure, community acquired pneumonia and other (pleural effesion, malignant pleural effusion, parapneumonic effusion ) Most likely diagnosis given after review of the tests above:: large pleural effusion Admission Indicated Admission indicated?: indicated Admission Request Was there a request for admission?: Yes Admission Attestation Admission request attestation: Discussed case with [] from Hospitalist service regarding admission. Discussed patients ED course, exam findings, labs, and radiology results. The Hospitalist [agrees,declines] to accept the patient for admission. Disposition Plan Disposition Plan: Admit Discharge Plan Plan Patient Disposition: Admit Acute Care w/in Hospital Disposition Comment: Hospice Patient condition on transfer: Stable Problem List Clinical Impression: Large pleural effusion, Leukocytosis, Acidosis, lactic, Acute hypoxic respiratory failure Patient/Caregiver Discharge Instructions Discharge Activity: activity as tolerated PA/ELECTRONICS COMMODITY MANAGER Supervising Physician PA/ELECTRONICS COMMODITY MANAGER Supervising Physician: juan josé
[2024-04-01] MEDS: PIPER/TAZO INJ 3.375 GM in SODIUM CHLORIDE 0.9% (P) 50 ML IV (15:20)
[2024-04-01 16:26] LABS: Reflex Lactate? Y
--- NOTE | 2024-04-01 16:37 | PC.CC ---
Patient is a 78 year-old female who presents to the hospital for SOB with HX Lung Cancer. Emily TOBIN made [id number] contact with patient. ASW introduced self, role, and reason for visit. Patient appeared alert and oriented to self, location, and situation. Patient was pleasant and engaged in initial assessment. Patient confirmed information on demographics and reports to living at home with her son, Joby Bah . Patient reports she has an [employer] Directive on file and reports that her primary medical decision maker in the event she is unable to make her own decisions would be her son, Joby Bah. At home the patient is able to ambulate independently and complete her own ADLs. The patient has been using oxygen since coming to the hospital. Patient reports she may need oxygen to discharge back home. Patient's primary care provider is Kathrine Rubalcava and her pharmacy of choice is [facility]. Upon discharge the patient plans to return back home. hotel services supervisor to follow up with any discharge needs.
--- NOTE | 2024-04-01 17:16 | PC.NURSE ---
Pt. arrived on unit [facility], from ER, awake. alert, oriented, assisted to bed, room orientation, bed in low position, and locked.
--- NOTE | 2024-04-01 17:36 | PD.NEPHHP ---
Documentation for date of: 04/01/24 History of Present Illness History of Present Illness Chief complaint: Shortness of breath History of present illness: Ms. Louis is a 78-year-old lady who unfortunately had a left arm growth and workup showed that she has sarcoma and has been seen by orthopedics in [place] and underwent radical resection of the left shoulder soft tissue mass 12/27/2023 which was 6.3 cm the longest dimension. 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 According to pathology reviewed at [facility] was negative corroborating no support for Albert's with other immunohistochemical support for rhabdomyosarcoma or melanoma. Given the size AJCC pT2. Pt now referred for adjuvant treatment at the cancer center. Patient has a past medical history of diabetes mellitus. Patient presented to the emergency department with significant shortness of breath, nausea, vomiting. In the emergency department WBC 11.6, hemoglobin 10.6, platelets 480. Sodium 131, potassium 4.3, creatinine 0.9, glucose 236, lactic acid 2.9 calcium 9.2, LFTs normal,, albumin 4.2, TSH 1.96, Pro-Alonso normal. Chest x-ray showed bilateral metastatic pulmonary nodules large right and moderate left pleural effusion. 03/2024 PET scan showed extensive metastatic disease. Patient admitted to medical floor for shortness of breath and need for thoracentesis. Review of Systems Review of Systems Narrative Review of Systems: CONSTITUTIONAL: Patient denies any fever, chills. Complaining of fatigue HEENT: Denies any visual disturbances or hearing problems. CARDIOVASCULAR: Patient denies any chest pain, swelling in the lower extremities. PULMONARY: Patient complaining of shortness of breath GASTROINTESTINAL: Patient denies any abdominal pain, constipation, nausea, vomiting, diarrhea. GENITOURINARY: Patient denies any urinary symptoms of burning or frequency or hematuria, denies any form in the urine. SKIN: Denies any rash. MUSCULOSKELETAL: Complaining of pain in the left arm NEUROLOGICAL: Denies any neurological problems of strokes, seizures or confusion. Denies any memory problems. Past Medical History Past Medical History NEUROLOGIC: Negative Neurological Disorders CARDIAC: Negative Cardiac Disorders, Myocardial Infarction, Cardiac Arrhythmia, Atrial Fibrillation, Angina, Heart Murmur, Coronary Artery Disease, Atherosclerotic Heart Disease, Peripheral Vascular Disease, Hypercholesterolemia, Aneurysm, Congestive Heart Failure, Congenital Heart Disease, Valvular Heart Disease, Rheumatic Fever, Cardiomyopathy, Pericarditis, Cellulitis, Deep Vein Thrombosis, Hypertension, Hypotension or Varicose Veins RESPIRATORY: Positive Respiratory Disorders, Asthma and Bronchitis; Negative Chronic Obstructive Pulmonary Disease (COPD) GASTROINTESTINAL: Negative Gastrointestinal Disorders GENITOURINARY: Negative Genitourinary Disorders or Renal Disease REPRODUCTIVE: Positive Previous Pregnancies (Pt has 6 children); Negative Pelvic Inflammatory Disease MUSCULOSKELETAL: Negative Musculoskeletal Disorders ENT: Negative History of ENT Problems ENDOCRINE: Positive Diabetes Mellitus Type 2; Negative Endocrine Disorders or Diabetes Mellitus Type 1 HEMATOLOGIC: Negative Blood Disorders OTHER HISTORY: Positive Anesthesia Reactions (Pt states morphine doesn't affect her pain) and Cancer (Sarcoma removal ([id number])); Negative Autoimmune Disease, Blood Transfusions, Blood Transfusion Reaction, Organ Transplant, Chemotherapy, Radiation Therapy, MRSA, VRSA or Vancomycin-Resistant Enterococci Family History FAMILY HISTORY: Positive Family Respiratory Disorders (Pt has hx of asthma), Family Cardiac Disorders (Pt mother has hx of HF) and Family Cancer (prostate cancer, skin cancer and colon cancer); Negative Family Psychiatric Problems, Family Gastrointestinal Problems, Family Genitourinary Problems, Family Endocrine Disorders, Family Reproductive Disorders, Family Musculoskeletal Disorders, Family Surgery or Family Anesthesia Reaction Surgical History SURGICAL: Negative Cardiac Surgery, Pacemaker, Endocrine Surgery, Ear Surgery, Abdominal Surgery, Nephrectomy, Joint Replacement, Neurologic Surgery, Mastectomy, Vasectomy or Organ Transplant Social History SMOKING STATUS: Never smoker Meds Home Medications and Allergies Home Medications ?Medication ?Instructions ?Recorded ?Confirmed ?Type albuterol sulfate 90 mcg/actuation 1 puff inhalation Q8HR 04/01/24 04/01/24 History aerosol inhaler aspirin 81 mg chewable tablet 81 mg PO Q12H 04/01/24 04/01/24 History cyclobenzaprine 5 mg tablet 5 mg PO Q12H 04/01/24 04/01/24 History meloxicam 15 mg tablet 15 mg PO DAILY 04/01/24 04/01/24 History tramadol 50 mg tablet 50 mg PO Q6H PRN pain 04/01/24 04/01/24 History Allergies Allergy/AdvReac Type Severity Reaction Status Date / Time cantaloupe Allergy Intermediate Rash Verified 04/01/24 10:52 shrimp Allergy Intermediate Rash Verified 04/01/24 10:53 Exam Vital Signs Temp Pulse Resp BP Pulse Ox O2 Del Method O2 Flow Rate 36.5 C 97 20 137/78 H 96 Nasal Cannula 2 04/01/24 15:00 04/01/24 15:00 04/01/24 15:00 04/01/24 15:00 04/01/24 16:54 04/01/24 16:54 04/01/24 16:54 Narrative Exam GENERAL APPEARANCE: Patient seems to be short of breath NECK: Neck supple, no JVD or bruit CARDIOVASCULAR: Heart regular, no murmurs LUNGS/CHEST: Chest clear to auscultation. No rales, rhonchi, wheezing ABDOMEN: Soft, nontender, nondistended. No masses. Normal bowel sounds. EXTREMITIES: No edema, clubbing or cyanosis. Left arm mass removed SKIN: Skin exam normal without any rashes MUSCULOSKELETAL: in bed NEUROLOGICAL : No neurological deficits Results: Labs 04/02/24 05:31 04/02/24 05:31 Labs: Short CBC 04/01/24 Range/Units 13:03 WBC 16.0 H (3.6-11.0) Thou/mm3 Hgb 10.6 L (12.0-16.0) g/dL Hct 32.6 L (36.0-46.0) % Plt Count 480 H D (140-440) Thou/mm3 BMP 04/01/24 13:03 Sodium 131 L Potassium 4.3 Chloride 97 L Carbon Dioxide 24.1 BUN 14 Creatinine 0.9 Glucose 236 H Calcium 9.2 Cardiac Enzymes 04/01/24 Range/Units 13:03 Troponin I < 0.020 (0.0-0.045) ng/mL Liver Function 04/01/24 Range/Units 13:03 Total Bilirubin 0.5 (0.3-1.2) mg/dL AST 12 (0-34) U/L ALT 13 (10-49) U/L Alkaline Phosphatase 110 (46-116) U/L Albumin 4.2 (3.4-4.8) gm/dL Assessment & Plan Assessment and plan (1) Acute hypoxic respiratory failure: Status: Acute Assessment and plan: Patient presented with acute hypoxic respiratory failure secondary to extensive metastatic cancer from sarcoma and also bilateral large pleural effusions. Will request thoracentesis from IR. Will request Dr. Hsu for consult. Will wean to her extensive metastatic disease, bilateral pleural effusions she might needed comfort care. Will await Dr. Hsu recommendations (2) Acidosis, lactic: Status: Acute Assessment and plan: Gentle IV fluids were given. Lactic acid levels improved. (3) Leukocytosis: Status: Acute Assessment and plan: No evidence of any infection. Question stress response. (4) Large pleural effusion: Status: Acute Assessment and plan: Request thoracentesis. (5) Metastatic sarcoma to lung: Status: Acute Assessment and plan: Metastatic sarcoma to the lung and bones. Dr. Hsu was involved (6) Diabetes: Status: Acute Assessment and plan: Accu-Cheks, sliding scale Additional Assessment & Plan Additional Plan: Patient requested CODE STATUS to be DNR DVT prophylaxis heparin GI prophylaxis not needed Disposition Home with home health Estimated length of stay 2 to 3 days Quality Measures Quality Measures VTE prophylaxis Advance care planning discussed with:: patient
[2024-04-01 19:04] LABS: Lactic Acid, 3 HR 2.4 mMol/L (0.4-2.0)
[2024-04-01] MEDS: traMADol HCL 50 MG TABLET 100 MG PO (19:37)
[2024-04-01] MEDS: PIPER/TAZO 3.375 GM 3.375 GM/50 ML BAG IV (20:46)
[2024-04-01] MEDS: INSULIN LISPRO (AdmeLOG) 1 UNIT/0.01 ML UNIT SC (20:51)
[2024-04-02] VITALS (10 sets, daily range): BP systolic 112–144; BP diastolic 61–83; PULSE 102–128; RESP 15–25; TEMP 36.1–36.6; O2SAT 92–96
[2024-04-02] MEDS: traMADol HCL 50 MG TABLET 100 MG PO ×4 (00:05→22:33)
--- NOTE | 2024-04-02 00:13 | PC.NURSE ---
called Dr. Rubalcava regarding patient changes, [facility]IL[facility] [facility] called for increased SOB and wheezing. New orders received of Lasix 20 mg IVP x1.
--- NOTE | 2024-04-02 00:20 | PC.NURSE ---
[employer] called due to patient having increased SOB and wheezing, feeling like she can't breath. Patient currently on 3L O2 via NC sating 94-96%. RR 25, HR 125, BP 129/63, T 97.9. Patient c/o 8/10 pain in her Right shoulder where her previous surgery was. Given tramadol 100 mg x1 PO.
[2024-04-02] MEDS: FUROSEMIDE INJ 10 MG/ML VIAL 2 ML 20 MG IVP (00:24)
--- NOTE | 2024-04-02 01:09 | PD.RESEVENT ---
Documentation for date of: 04/02/24 Event Note Event Note: Rapid Response Room: 375 Time: 23:57 Reason for Call: Shortness of breath, tachypneia 22-26, tachycardia 110s Patient presentation: Patient complaining of shortness of breath, however she noted being short of breath since admission. She notes L shoulder pain. Patient was admitted today for shortness of breath secondary to pneumonia/malignant pleural effusion. Events: Patient evaluated at bedside, lungs were clear, heart sounds normal, appearing anxious. Warm extremities, good pulses. Vitals included BP 129/63, RR 25, Temp 97.9, O2 96% on 3L. Assessment: Pain and shortness of breath associated with right-sided pleural effusion seen since admission. Patient might benefit from thoracentesis. Continue to treat for pneumonia. New orders: Patient got tramadol 100 mg x1 at 00:05. Last dose of tramadol 100 mg was at 19:37. Patient refused morphine. Patient was discussed with the attending, Dr. Purdy, and team resident Lance Garrett, PGY-1. Deana Strong, PGY-2
[2024-04-02] MEDS: PIPER/TAZO 3.375 GM 3.375 GM/50 ML BAG IV ×3 (05:34→20:48)
[2024-04-02 06:18] LABS: Basophils % (Auto) 0 % (0-2.5); Eosinophils # (Auto) 0.1 Thou/mm3 (0.0-0.5); Eosinophils % (Auto) 0 % (0-10); Hematocrit 30.3 % (36.0-46.0); Hemoglobin 9.8 g/dL (12.0-16.0); Immature Granulocytes % (Auto) 1 % (0-0); Immature Granulocytes Auto 0.21 Thou/mm3 (0.00-0.00); Lymphocytes % (Auto) 6 % (10-50); Mean Corpuscular HGB Conc 32.3 g/dl (31.0-37.0); Mean Corpuscular Hemoglobin 27.3 pg (25.0-35.0); Mean Corpuscular Volume 84 fL (80-100); Monocytes # (Auto) 1.8 Thou/mm3 (0.0-0.8); Monocytes % (Auto) 11 % (0-12); Neutrophils % (Auto) 81 % (37-80); Nucleated Red Blood Cell % 0 /100 WBC (0); Platelet Count 393 Thou/mm3 (140-440); RDW Standard Deviation 39.8 fL (36.4-46.3); Red Blood Count 3.59 Miln/mm3 (4.00-5.20); White Blood Count 16.1 Thou/mm3 (3.6-11.0)
[2024-04-02 06:59] LABS: Glucose Estimated Average 148 mg/dL (80-131); Hemoglobin A1C 6.8 % Hgb (4.8-6.0)
[2024-04-02 07:14] LABS: Alanine Aminotransferase < 7 U/L (10-49); Albumin, Serum 3.9 gm/dL (3.4-4.8); Albumin/Globulin Ratio 1.4 (1.2-2.2); Alkaline Phosphatase 102 U/L (46-116); Anion Gap 12 (7-16); Aspartate Amino Transferase 18 U/L (0-34); BUN/Creatinine Ratio 19 Ratio (12-20); Bilirubin,Total 0.4 mg/dL (0.3-1.2); Blood Urea Nitrogen 17 mg/dL (9-23); Calcium 8.7 mg/dL (8.3-10.6); Calcium (Corrected) 8.8 mg/dL (8.5-10.1); Carbon Dioxide 24.8 mMol/L (20.0-31.0); Cardiac Risk Estimate 4.9 RATIO (3.7-5.6); Chloride 98 mMol/L (98-107); Cholesterol 151 mg/dL (132-200); Creatinine (Component) 0.9 mg/dL (0.6-1.3); Estimated Creatinine Clearance 54.8 mL/min (>60); Globulin 2.7 gm/dL (2.3-3.5); Glucose 187 mg/dL (74-106); HDL Cholesterol 31 mg/dL (40-60); LDL Cholesterol,Calculated 92 mg/dL (0-130); Osmolality,Calculated 276 (275-295); Potassium 4.4 mMol/L (3.4-5.1); Sodium 135 mMol/L (136-145); Total Protein 6.6 gm/dL (5.7-8.2); Triglycerides 138 mg/dL (30-150); eGFR > 60 See Note
[2024-04-02] MEDS: INSULIN LISPRO (AdmeLOG) 1 UNIT/0.01 ML UNIT SC ×4 (08:09→20:43)
[2024-04-02] MEDS: INSULIN GLARGINE (Lantus) 5 UNIT/0.05 ML (PER 5 UNITS) 10 UNIT SC (08:10)
--- NOTE | 2024-04-02 13:00 | PD.NEPHPROG ---
Documentation for date of: 04/02/24 Subjective Subjective Interval history: Ms. Louis is a 78-year-old lady who unfortunately had a left arm growth and workup showed that she has sarcoma and has been seen by orthopedics in [place] and underwent radical resection of the left shoulder soft tissue mass 12/27/2023 which was 6.3 cm the longest dimension. 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 According to pathology reviewed at [facility] was negative corroborating no support for Albert's with other immunohistochemical support for rhabdomyosarcoma or melanoma. Given the size AJCC pT2. Pt now referred for adjuvant treatment at the cancer center. Patient has a past medical history of diabetes mellitus. Patient presented to the emergency department with significant shortness of breath, nausea, vomiting. In the emergency department WBC 11.6, hemoglobin 10.6, platelets 480. Sodium 131, potassium 4.3, creatinine 0.9, glucose 236, lactic acid 2.9 calcium 9.2, LFTs normal,, albumin 4.2, TSH 1.96, Pro-Alonso normal. Chest x-ray showed bilateral metastatic pulmonary nodules large right and moderate left pleural effusion. 03/2024 PET scan showed extensive metastatic disease. Patient admitted to medical floor for shortness of breath and need for thoracentesis. 04/02/2024 patient currently seen in medical floor. Still having significant shortness of breath. This morning she had rapid response for hypoxic respiratory failure. Talked to Dr. Stringer-did thoracentesis and 700 mL fluid was drained. However seems to have loculated pleural effusion. Will request IR for another paracentesis in AM. Dr. Hsu was consulted. Patient complaining of pain everywhere. Tramadol,, Tylenol was given. Prognosis remains guarded. Did discuss CODE STATUS with the patient and she requested DNR. Once Dr. Hsu evaluates patient -- Goals of care to be discussed with family Review of Systems Review of Systems Narrative Review of Systems: CONSTITUTIONAL: Patient denies any fever, chills. Complaining of fatigue HEENT: Denies any visual disturbances or hearing problems. CARDIOVASCULAR: Patient denies any chest pain, swelling in the lower extremities. PULMONARY: Patient complaining of shortness of breath GASTROINTESTINAL: Patient denies any abdominal pain, constipation, nausea, vomiting, diarrhea. GENITOURINARY: Patient denies any urinary symptoms of burning or frequency or hematuria, denies any form in the urine. SKIN: Denies any rash. MUSCULOSKELETAL: Complaining of pain in the left arm NEUROLOGICAL: Denies any neurological problems of strokes, seizures or confusion. Denies any memory problems. Exam Vital Signs Temp Pulse Resp BP Pulse Ox O2 Del Method O2 Flow Rate 36.1 C 102 H 15 116/76 95 Nasal Cannula 4 04/02/24 12:00 04/02/24 12:00 04/02/24 12:00 04/02/24 12:00 04/02/24 12:00 04/02/24 04:00 04/02/24 12:00 Narrative Exam GENERAL APPEARANCE: Patient seems to be short of breath NECK: Neck supple, no JVD or bruit CARDIOVASCULAR: Heart regular, no murmurs LUNGS/CHEST: Chest clear to auscultation. No rales, rhonchi, wheezing ABDOMEN: Soft, nontender, nondistended. No masses. Normal bowel sounds. EXTREMITIES: No edema, clubbing or cyanosis. Left arm mass removed SKIN: Skin exam normal without any rashes MUSCULOSKELETAL: in bed NEUROLOGICAL : No neurological deficits Objective Labs 04/02/24 05:31 04/02/24 05:31 Labs: Laboratory Results - last 24 hr 04/01/24 04/01/24 04/01/24 13:03 15:46 18:55 WBC 16.0 H RBC 3.86 L Hgb 10.6 L Hct 32.6 L MCV 85 MCH 27.5 MCHC 32.5 RDW Std Deviation 39.6 Plt Count 480 H D Neut % (Auto) 84 H Lymph % (Auto) 6 L [place] % (Auto) 9 Eos % (Auto) 0 Baso % (Auto) 0 Neut # (Auto) 13.4 H Lymph # (Auto) 1.0 [place] # (Auto) 1.4 H Eos # (Auto) 0.0 Baso # (Auto) 0.0 Immature Gran # (Auto) 0.17 H Absolute Nucleated RBC 0.00 Immature Gran % 1 H Nucleated RBC % 0 Sodium 131 L Potassium 4.3 Chloride 97 L Carbon Dioxide 24.1 Anion Gap 10 BUN 14 Creatinine 0.9 Estim Creat Clear Calc 52.6 L eGFR > 60 BUN/Creatinine Ratio [address] Glu mg/dL Hemoglobin A1c Calculated Osmolality 271 L Lactic Acid 2.9 H 2.0 2.4 H Calcium 9.2 Corrected Calcium 9.2 Total Bilirubin 0.5 AST 12 ALT 13 Alkaline Phosphatase 110 Troponin I < 0.020 B-Natriuretic Peptide 53 Total Protein 7.1 Albumin 4.2 Globulin 2.9 Albumin/Globulin Ratio 1.4 Triglycerides Cholesterol LDL Cholesterol, Calc HDL Cholesterol Cholesterol/HDL Ratio Procalcitonin 0.14 TSH 1.96 04/02/24 05:31 WBC 16.1 H RBC 3.59 L Hgb 9.8 L Hct 30.3 L MCV 84 MCH 27.3 MCHC 32.3 RDW Std Deviation 39.8 Plt Count 393 D Neut % (Auto) 81 H Lymph % (Auto) 6 L [place] % (Auto) 11 Eos % (Auto) 0 Baso % (Auto) 0 Neut # (Auto) 13.0 H Lymph # (Auto) 1.0 [place] # (Auto) 1.8 H Eos # (Auto) 0.1 Baso # (Auto) 0.0 Immature Gran # (Auto) 0.21 H Absolute Nucleated RBC 0.00 Immature Gran % 1 H Nucleated RBC % 0 Sodium 135 L Potassium 4.4 Chloride 98 Carbon Dioxide 24.8 Anion Gap 12 BUN 17 Creatinine 0.9 Estim Creat Clear Calc 54.8 L eGFR > 60 BUN/Creatinine Ratio [address] Glu mg/dL 148 H Hemoglobin A1c 6.8 H Calculated Osmolality 276 Lactic Acid Calcium 8.7 Corrected Calcium 8.8 Total Bilirubin 0.4 AST 18 ALT < 7 L Alkaline Phosphatase 102 Troponin I B-Natriuretic Peptide Total Protein 6.6 Albumin 3.9 Globulin 2.7 Albumin/Globulin Ratio 1.4 Triglycerides 138 Cholesterol 151 LDL Cholesterol, Calc 92 HDL Cholesterol 31 L Cholesterol/HDL Ratio 4.9 Procalcitonin TSH Assessment & Plan Additional Assessment & Plan Additional Plan: (1) Acute hypoxic respiratory failure: Status: Acute Assessment and plan: Patient presented with acute hypoxic respiratory failure secondary to extensive metastatic cancer from sarcoma and also bilateral large pleural effusions. Dr. Stringer did right-sided thoracentesis and 700 mL fluid was removed. Will request Dr. Hsu for consult. Owing to her extensive metastatic disease, bilateral pleural effusions she might benefit from comfort care. Will await Dr. Hsu recommendations . Goals of care will be discussed with family after. (2) Acidosis, lactic: Status: Acute Assessment and plan: Gentle IV fluids were given. Lactic acid levels improved. (3) Leukocytosis: Status: Acute Assessment and plan: No evidence of any infection. Question stress response. Zosyn was given (4) Large pleural effusion: Status: Acute Assessment and plan: Request thoracentesis. (5) Metastatic sarcoma to lung: Status: Acute Assessment and plan: Metastatic sarcoma to the lung and bones. Dr. Hsu was consulted. Patient complaining of generalized pain. Tramadol, Tylenol given. (6) Diabetes: Status: Acute Assessment and plan: Accu-Cheks, sliding scale
--- NOTE | 2024-04-02 14:27 | XR_ITS ---
Examination: AP chest single view Technique one AP portable semiupright chest single view Exam date 9: April 02, 2024 1439 hrs. Comparison April 01, 2024, PET CT scan March 30, 2024 Indications: Postthoracentesis, history pulmonary nodular metastatic disease, diagnosis malignant neoplasm connective tissue left shoulder, sarcoma Findings: Bilateral metastatic pulmonary nodules Mild prominence left ventricle Large right pleural effusion No pneumothorax Impression: Pulmonary nodular metastatic disease Large right pleural effusion No pneumothorax
--- NOTE | 2024-04-02 15:12 | ESOP_ITS ---
Procedures Procedure Date / Time 04/02/24 14:20 Procedure Narrative Procedure Narrative: Attending Attestation: I was present for entire procedure. Patient tolerated procedure well with no significant blood loss. No immediate complications. Follow-up chest x-ray shows no postprocedural pneumothorax. Thoracentesis Indication(s): symptomatic Pleural Effusion Informed consent obtained from: patient Time out done, and the following verified: correct patient, side and site, procedure, patient position and implants and/or equipment Ultrasound used: Yes Procedure location: rt. post pleural space Amount pleural fluid removed (ml): 750 EBL(ml): 1 Procedure comment: Procedure performed under supervision of Dr. Stringer. Issac Joya MD, PGY 2. Disclaimer: This note was dictated by speech recognition. Minor errors in credit compliance officer may be present due to voice recognition software.
[2024-04-02] MEDS: HEPARIN SOD INJ 5000 UNIT/ML VIAL SC ×2 (17:52→20:49)
--- NOTE | 2024-04-02 18:40 | PC.NURSE ---
Patient had zero urine output, Dr. Rubalcava notified, telephone order read back to put in villalpando cath.
[2024-04-03] VITALS (8 sets, daily range): BP systolic 107–136; BP diastolic 63–97; PULSE 102–115; RESP 14–18; TEMP 36.2–36.6; O2SAT 91–94
[2024-04-03] MEDS: ACETAMINOPHEN 325 MG TABLET 650 MG PO (03:20)
[2024-04-03] MEDS: traMADol HCL 50 MG TABLET 100 MG PO ×2 (04:33→13:52)
[2024-04-03] MEDS: HEPARIN SOD INJ 5000 UNIT/ML VIAL SC ×2 (04:46→13:39)
[2024-04-03] MEDS: PIPER/TAZO 3.375 GM 3.375 GM/50 ML BAG IV ×3 (04:46→21:03)
[2024-04-03 05:55] LABS: Basophils % (Auto) 0 % (0-2.5); Eosinophils # (Auto) 0.1 Thou/mm3 (0.0-0.5); Eosinophils % (Auto) 0 % (0-10); Hematocrit 25.3 % (36.0-46.0); Immature Granulocytes % (Auto) 1 % (0-0); Immature Granulocytes Auto 0.17 Thou/mm3 (0.00-0.00); Lymphocytes % (Auto) 7 % (10-50); Mean Corpuscular HGB Conc 32.4 g/dl (31.0-37.0); Mean Corpuscular Hemoglobin 27.2 pg (25.0-35.0); Mean Corpuscular Volume 84 fL (80-100); Monocytes # (Auto) 1.5 Thou/mm3 (0.0-0.8); Monocytes % (Auto) 10 % (0-12); Neutrophils % (Auto) 81 % (37-80); Nucleated Red Blood Cell # 0.02 Thou/mm3 (0.00-0.00); Nucleated Red Blood Cell % 0 /100 WBC (0); Platelet Count 423 Thou/mm3 (140-440); RDW Standard Deviation 40.6 fL (36.4-46.3); Red Blood Count 3.02 Miln/mm3 (4.00-5.20); White Blood Count 14.8 Thou/mm3 (3.6-11.0)
[2024-04-03 05:57] LABS: Hemoglobin 8.2 g/dL (12.0-16.0)
--- NOTE | 2024-04-03 06:32 | ESCONSULT_ITS ---
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 Gosia Victor in [place], 12/27/2023. It was clear from the beginning was very quite aggressive, with local recurrence noted within weeks of surgery. PET scan 03-30-24 showed widespread osseous met disease left humerus thoracolumbar spine and pelvis, multiple pulmonary nodules including 5.7 x 5.2 cm right middle lobe, and right pleural effusion. Patient had difficulty breathing and came to the ER with chest x-ray 04/01/2024 showing large moderate left malignant pleural effusion along with extensive pulmonary nodular met disease. Upon admission on 04/02/2024 underwent right thoracentesis removing 750 cc which alleviated her breathing problems. Labs on admission revealed elevated white count of 16.0, hemoglobin 10.6 platelet count 480,000. Lactic acid 2.4. Present referred for oncological consultation. cc:: cc: Arnoldo Purdy MD Past Medical History Surgical History OTHER SURGICAL HX: Recent radical resection of left proximal upper extremity malignancy.. Social History SOCIAL: Retired from Past Medical History Comments PMH COMMENT: History of asthma bronchitis diabetes mellitus 2 Meds Home Medications and Allergies Home Medications ?Medication ?Instructions ?Recorded ?Confirmed ?Type albuterol sulfate 90 mcg/actuation 1 puff inhalation Q8HR 04/01/24 04/01/24 History aerosol inhaler aspirin 81 mg chewable tablet 81 mg PO Q12H 04/01/24 04/01/24 History cyclobenzaprine 5 mg tablet 5 mg PO Q12H 04/01/24 04/01/24 History meloxicam 15 mg tablet 15 mg PO DAILY 04/01/24 04/01/24 History tramadol 50 mg tablet 50 mg PO Q6H PRN pain 04/01/24 04/01/24 History Allergies Allergy/AdvReac Type Severity Reaction Status Date / Time cantaloupe Allergy Intermediate Rash Verified 04/01/24 10:52 shrimp Allergy Intermediate Rash Verified 04/01/24 10:53 Exam Vital Signs Temp Pulse Resp BP Pulse Ox O2 Del Method O2 Flow Rate 97.5 F 104 H 14 107/64 92 L Nasal Cannula 4 04/03/24 04:00 04/03/24 04:39 04/03/24 04:00 04/03/24 04:00 04/03/24 04:00 04/03/24 04:00 04/02/24 12:00 Narrative Exam Receiving O2 by mask appearing comfortable. Results Labs 04/03/24 04:40 04/02/24 05:31 Labs: Short CBC 04/03/24 Range/Units 04:40 WBC 14.8 H (3.6-11.0) Thou/mm3 Hgb 8.2 L (12.0-16.0) g/dL Hct 25.3 L (36.0-46.0) % Plt Count 423 D (140-440) Thou/mm3 BMP 04/02/24 05:31 Sodium 135 L Potassium 4.4 Chloride 98 Carbon Dioxide 24.8 BUN 17 Creatinine 0.9 Glucose 187 H Calcium 8.7 Liver Function 04/02/24 Range/Units 05:31 Total Bilirubin 0.4 (0.3-1.2) mg/dL AST 18 (0-34) U/L ALT < 7 L (10-49) U/L Alkaline Phosphatase 102 (46-116) U/L Albumin 3.9 (3.4-4.8) gm/dL Assessment and Plan Additional Assessment & Plan Additional Plan: 1. 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 Underwent radical resection in [place] 12/[place]/2023 while apparently localized in left proximal upper extremity. 3. Due to the rare and aggressive malignancy, previously discussed the case with Dr. Garry Alexander [facility], sarcoma specialist, who was scheduled to see patient as outpatient. 4. I will attempt to speak with Dr. Alexander again today; it is unlikely that any systemic therapy will benefit patient significantly in this aggressive and rapidly spreading sarcoma according to latest literature. 5. Will follow. Thank for allowing me to evaluate this unfortunate patient.
[2024-04-03 06:38] LABS: Alanine Aminotransferase 11 U/L (10-49); Albumin, Serum 3.6 gm/dL (3.4-4.8); Albumin/Globulin Ratio 1.4 (1.2-2.2); Alkaline Phosphatase 91 U/L (46-116); Anion Gap 12 (7-16); Aspartate Amino Transferase 23 U/L (0-34); BUN/Creatinine Ratio 18 Ratio (12-20); Bilirubin,Total 0.4 mg/dL (0.3-1.2); Blood Urea Nitrogen 20 mg/dL (9-23); Calcium 8.6 mg/dL (8.3-10.6); Calcium (Corrected) 8.9 mg/dL (8.5-10.1); Carbon Dioxide 22.8 mMol/L (20.0-31.0); Chloride 98 mMol/L (98-107); Creatinine (Component) 1.1 mg/dL (0.6-1.3); Estimated Creatinine Clearance 44.8 mL/min (>60); Globulin 2.6 gm/dL (2.3-3.5); Glucose 166 mg/dL (74-106); Osmolality,Calculated 272 (275-295); Potassium 4.4 mMol/L (3.4-5.1); Sodium 133 mMol/L (136-145); Total Protein 6.2 gm/dL (5.7-8.2); eGFR 52 See Note
[2024-04-03] MEDS: INSULIN LISPRO (AdmeLOG) 1 UNIT/0.01 ML UNIT SC ×4 (07:59→21:03)
[2024-04-03] MEDS: INSULIN GLARGINE (Lantus) 5 UNIT/0.05 ML (PER 5 UNITS) 10 UNIT SC (08:00)
[2024-04-03] MEDS: SENNA TABLET 1 TAB PO (11:26)
[2024-04-03] MEDS: POLYETHYLENE GLYCOL 17 GM PACKET PO (11:26)
--- NOTE | 2024-04-03 15:43 | PC.SS ---
SS was informed by family they are requesting pt go to SNF and their choice is [facility] (formally known as [facility]) and they will peruse Hospice later at the SNF.
[2024-04-03] MEDS: HYDROmorphone INJ 2 MG/ML VIAL 0.5 MG IVP (16:21)
[2024-04-03] MEDS: LORazepam 2 MG/ML VIAL 0.5 MG IVP (17:31)
--- NOTE | 2024-04-03 17:54 | PD.RESPRO ---
Documentation for date of: 04/03/24 Subjective Subjective Interval history: Patient was seen and examined at bedside, patient denied any symptoms except her shortness of breath that is stable. She mentioned that she had extensive discussion with the oncologist Dr. Hsu, and she want to pursue full treatment at this time except her CODE STATUS which has been changed to DNR/DNI. She mentions that she wants the remaining of the loculated pleural effusion to be drained I informed her that we will talk to the interventional radiologist per Katina. Her son mentioned that they need this procedure to be done so she can be able to gather all the family to decide her goals of care. At this time her heart rate is 109, she is saturating 94% on 4 L of oxygen, WBC downtrending from 16-14.8 she is on Zosyn at this time, hemoglobin stable at 8.2, her serum creatinine has increased from 0.9-1.1 we will keep monitoring. Exam Vital Signs Temp Pulse Resp BP Pulse Ox O2 Del Method O2 Flow Rate 97.1 F 105 H 16 134/63 H 94 L Room Air 4 04/03/24 15:57 04/03/24 15:57 04/03/24 15:57 04/03/24 15:57 04/03/24 15:57 04/03/24 15:57 04/03/24 08:00 Narrative Exam GEN: AOx3, able to speak full sentences HEENT: NC/AC, oral mucosa moist, neck supple CVS: RRR, S1-S2 present, no murmurs appreciated RESP: Decreased air entry bilaterally, coarse crepitations bilaterally. GI: soft,non distended, non tender, NBS MSK: able to move all 4 limbs, no lower extremity edema SKIN: warm and dry VISUAL AND STOCK ASSOCIATE: CN II-XII and Sensation grossly intact. Objective Labs 04/04/24 04:34 04/04/24 04:34 Labs: Laboratory Results - last 24 hr 04/03/24 04:40 WBC 14.8 H RBC 3.02 L Hgb 8.2 L Hct 25.3 L MCV 84 MCH 27.2 MCHC 32.4 RDW Std Deviation 40.6 Plt Count 423 D Neut % (Auto) 81 H Lymph % (Auto) 7 L [place] % (Auto) 10 Eos % (Auto) 0 Baso % (Auto) 0 Neut # (Auto) 12.0 H Lymph # (Auto) 1.0 [place] # (Auto) 1.5 H Eos # (Auto) 0.1 Baso # (Auto) 0.0 Immature Gran # (Auto) 0.17 H Absolute Nucleated RBC 0.02 H Immature Gran % 1 H Nucleated RBC % 0 Sodium 133 L Potassium 4.4 Chloride 98 Carbon Dioxide 22.8 Anion Gap 12 BUN 20 Creatinine 1.1 Estim Creat Clear Calc 44.8 L eGFR 52 L BUN/Creatinine Ratio 18 Glucose 166 H Calculated Osmolality 272 L Calcium 8.6 Corrected Calcium 8.9 Total Bilirubin 0.4 AST 23 ALT 11 Alkaline Phosphatase 91 Total Protein 6.2 Albumin 3.6 Globulin 2.6 Albumin/Globulin Ratio 1.4 Quality Measures Quality Measures VTE prophylaxis Advance care planning discussed with:: patient and child Assessment & Plan Assessment Current Active Medications: Generic Name Dose Route Start Last Admin Trade Name Freq PRN Reason Stop Dose Admin Acetaminophen 650 mg 04/01/24 14:59 04/03/24 03:20 Acetaminophen 325 Mg Tablet PO 05/01/24 14:58 650 mg Q6HR PRN Administration Fever > 100.4 Dextrose 50 ml 04/01/24 17:53 Dextrose 50%-Water Inj 50 Ml Syringe IV 05/01/24 17:52 Q15MIN PRN BG <50 OR BG <70 & pt unresponsive Glucagon 1 mg 04/01/24 17:53 Glucagon Inj 1 Mg Vial IM Q15MIN PRN BG <70, and no IV access Heparin Sodium (Porcine) 5,000 unit 04/02/24 17:45 04/03/24 13:39 Heparin Sod Inj 5000 Unit/Ml Vial SC 04/16/24 17:44 5,000 unit Q8HR YANETH Administration Hydromorphone HCl 0.5 mg 04/03/24 15:54 04/03/24 16:21 Hydromorphone Inj 2 Mg/Ml Vial IVP 04/08/24 15:59 0.5 mg Q2HR PRN Administration Shortness Of Breath, pain Piperacillin/Tazobactam/Dextrose 3.375 gm in 50 mls @ 12.5 mls/hr 04/01/24 22:00 04/03/24 13:39 Zosyn IV 04/08/24 21:59 12.5 mls/hr Q8HR YANETH Administration Insulin Glargine 10 unit 04/01/24 18:00 04/03/24 08:00 Insulin Glargine (Lantus) 5 Unit/0.05 Ml (Per 5 Units) SC 05/01/24 17:59 10 unit QDAY YANETH Administration Insulin Human Lispro 0 unit 04/01/24 21:00 04/03/24 16:39 Insulin Lispro (Admelog) 1 Unit/0.01 Ml Unit SC 05/01/24 20:59 4 unit ACHS YANETH Administration Protocol Lorazepam 0.5 mg 04/03/24 17:08 04/03/24 17:31 Lorazepam 2 Mg/Ml Vial IVP 04/08/24 17:07 0.5 mg Q6HR PRN Administration ANXIETY Ondansetron HCl 4 mg 04/01/24 14:59 Ondansetron Inj 2 Mg/Ml Inj 2 Ml IV 05/01/24 14:58 Q4HR PRN NAUSEA OR VOMITING Protocol Polyethylene Glycol 17 gm 04/03/24 10:00 04/03/24 11:26 Polyethylene Glycol 17 Gm Packet PO 05/03/24 09:59 17 gm QDAY YANETH Administration Sennosides 1 tab 04/03/24 10:00 04/03/24 11:26 Senna Tablet PO 05/03/24 09:59 1 tab QDAY YANETH Administration Protocol Tramadol HCl 100 mg 04/01/24 19:30 04/03/24 13:52 Tramadol Hcl 50 Mg Tablet PO 04/06/24 19:29 100 mg Q6HR PRN Administration PAIN Plan Summary: 78-year-old female patient known case of diabetes mellitus type 2, stage IV sarcoma presented to the ED due to acute hypoxic respiratory failure found to have leg metastasis with bilateral pleural effusion patient was admitted for acute hypoxic respiratory failure treatment Assessment and plan #Acute hypoxic respiratory failure #Bilateral pleural effusion most likely malignant pleural effusion #Community-acquired pneumonia #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 Ugalde and it was drained 750 mL of fluids. WBC was found to be elevated. Patient reported mild chills and low-grade fever. Plan ? Continue patient on Zosyn ? Consultation to the interventional radiologist for possible bilateral drainage under CT scan guidance ? Continue oxygen as needed ? DuoNebs as needed for wheezing ? Strict in and out ? Goals of care discussion with the family will be held tomorrow ? Oncologist Dr. Hsu was consulted, recommendation appreciated ? Pain control with tramadol, [place], Tylenol ? Continuous pulse ox meter #History of diabetes mellitus Plan ? Continue insulin sliding scale ? Hypoglycemia protocol in place Hospital Maintenance: FEN: Carb consistent diet DVT ppx: SCDs, patient will undergo thoracentesis possibly tomorrow GI ppx: Protonix IV lines: PIV [place]: None Code status: Full code Dispo: MedSurg - Patient's plan and care discussed with my attending, Dr. Gini Rankin MD Internal Medicine PGY-2 Attending Provider Attestation/Addendum Patient seen and examined with resident physician Dr. Sam. Note reviewed, agree with findings and recommendations.
--- NOTE | 2024-04-03 18:04 | PC.NURSE ---
Dr. Rubalcava came to see patient. said to hold Heparin at this time.
[2024-04-04] VITALS: BP 125/83; PULSE 120; PULSE 98; RESP 18; TEMP 36.3; O2SAT 95
--- NOTE | 2024-04-04 | XR_ITS ---
Examination: AP chest single view TECHNIQUE: Sitting AP portable chest single view Exam date and time: April 04, 2024 0947 hours Comparison April 02, 2024 INDICATIONS: Post thoracentesis FINDINGS: No pneumothorax post thoracentesis, decreased right pleural fluid Multiple metastatic pulmonary nodules depicted Prominent osteopenia IMPRESSION: No pneumothorax post thoracentesis
[2024-04-04] MEDS: HYDROmorphone INJ 2 MG/ML VIAL 0.5 MG IVP ×4 (01:02→11:33)
[2024-04-04 04:00] VITALS: BP 113/76; PULSE 108; PULSE 90; RESP 18; TEMP 36.1; O2SAT 97
[2024-04-04] MEDS: PIPER/TAZO 3.375 GM 3.375 GM/50 ML BAG IV ×3 (05:07→22:37)
--- NOTE | 2024-04-04 05:59 | PC.NURSE ---
dr hardy notified of patients HR reaching 180, then sustained in the 130's. No new orders at this time.
[2024-04-04 06:44] LABS: Basophils % (Auto) 0 % (0-2.5); Eosinophils % (Auto) 0 % (0-10); Hematocrit 25.1 % (36.0-46.0); Immature Granulocytes % (Auto) 2 % (0-0); Immature Granulocytes Auto 0.28 Thou/mm3 (0.00-0.00); Lymphocytes # (Auto) 1.2 Thou/mm3 (1.0-4.8); Lymphocytes % (Auto) 6 % (10-50); Mean Corpuscular HGB Conc 33.1 g/dl (31.0-37.0); Mean Corpuscular Hemoglobin 27.6 pg (25.0-35.0); Mean Corpuscular Volume 83 fL (80-100); Monocytes # (Auto) 1.8 Thou/mm3 (0.0-0.8); Monocytes % (Auto) 10 % (0-12); Neutrophils # (Auto) 15.7 Thou/mm3 (1.8-7.7); Neutrophils % (Auto) 82 % (37-80); Nucleated Red Blood Cell # 0.04 Thou/mm3 (0.00-0.00); Nucleated Red Blood Cell % 0 /100 WBC (0); Platelet Count 438 Thou/mm3 (140-440); RDW Standard Deviation 41.1 fL (36.4-46.3); Red Blood Count 3.01 Miln/mm3 (4.00-5.20); White Blood Count 19.1 Thou/mm3 (3.6-11.0)
[2024-04-04 06:47] LABS: Hemoglobin 8.3 g/dL (12.0-16.0)
[2024-04-04] MEDS: INSULIN LISPRO (AdmeLOG) 1 UNIT/0.01 ML UNIT SC ×4 (07:34→20:27)
[2024-04-04] MEDS: traMADol HCL 50 MG TABLET 100 MG PO (07:35)
[2024-04-04 08:00] VITALS: BP 144/81; PULSE 111; RESP 23; TEMP 36.2; O2SAT 93
[2024-04-04 08:02] LABS: Alanine Aminotransferase 11 U/L (10-49); Albumin, Serum 3.7 gm/dL (3.4-4.8); Albumin/Globulin Ratio 1.3 (1.2-2.2); Alkaline Phosphatase 92 U/L (46-116); Anion Gap 12 (7-16); Aspartate Amino Transferase 23 U/L (0-34); BUN/Creatinine Ratio 25 Ratio (12-20); Bilirubin,Total 0.4 mg/dL (0.3-1.2); Blood Urea Nitrogen 30 mg/dL (9-23); Calcium 8.6 mg/dL (8.3-10.6); Calcium (Corrected) 8.8 mg/dL (8.5-10.1); Carbon Dioxide 22.9 mMol/L (20.0-31.0); Chloride 96 mMol/L (98-107); Creatinine (Component) 1.2 mg/dL (0.6-1.3); Estimated Creatinine Clearance 41.1 mL/min (>60); Globulin 2.8 gm/dL (2.3-3.5); Glucose 191 mg/dL (74-106); Osmolality,Calculated 273 (275-295); Potassium 4.8 mMol/L (3.4-5.1); Sodium 131 mMol/L (136-145); Total Protein 6.5 gm/dL (5.7-8.2); eGFR 47 See Note
--- NOTE | 2024-04-04 08:05 | XR_ITS ---
Examination: Ultrasound-guided right thoracentesis Ultrasound right hemithorax Ultrasound left hemithorax Exam date and time: April 04, 2024 0911 hours INDICATIONS: Malignant pulmonary nodular metastatic disease malignant bilateral pleural effusions on CT chest study yesterday, difficulty breathing hypoxia TECHNIQUE AND FINDINGS: Multiple sonographic images right and left hemithoraces Large right pleural fluid, complex consistent with blood Smaller left pleural fluid Informed consent provided. Timeout performed. Skin prepped over the right hemithorax and sterile drape applied maximum sterile barrier technique hand hygiene ultrasound sterile technique 7:00 administered for local anesthesia Utilizing sonographic guidance 5 Lithuanian catheter placed in the right pleural space 2000 cc fluid removed from the right hemithorax Patient instable condition at completion procedure IMPRESSION: Successful ultrasound-guided right thoracentesis, 2000 cc grossly sanguinous fluid removed
[2024-04-04] MEDS: INSULIN GLARGINE (Lantus) 5 UNIT/0.05 ML (PER 5 UNITS) 10 UNIT SC (08:07)
[2024-04-04] MEDS: POLYETHYLENE GLYCOL 17 GM PACKET PO (08:08)
[2024-04-04] MEDS: LORazepam 2 MG/ML VIAL 0.5 MG IVP ×2 (08:29→15:36)
--- NOTE | 2024-04-04 09:06 | PC.SS ---
Late note 04-03-23: SS met with patient regarding her d/c plan. Pt is alert/oriented. Pt was admitted for SOB, R Pleural Effusion, R.O Sepsis. Pt confirmed demographic and contact information is correct on facesheet. Pt resides with son. Pt ambulates independently without assistance or DME. Pt is ok with all ADLs. Pt is 4 liters of O2. Pt does not use O2 at home. Patient?s pharmacy of choice is [facility]. Pt named her son, Grady Bah medical decision maker if he is unable. Patient's choice is SNF. Pt and family are requesting [facility] ([place]). Pt states she is diabetic and takes oral medication for her diabetics. Pt followed up with PCP January 2024. D/C plan: [facility] Next of Kin: Grady Bah, son, phone# [phone] PCP: Address: Correct on facesheet
[2024-04-04 09:25] LABS: INR 1.1 (0.9-1.3); Partial Thromboplastin Time 22.9 Seconds (22.0-36.0)
--- NOTE | 2024-04-04 10:31 | ESPR_ITS ---
Documentation for date of: 04/04/24 Subjective Subjective Interval history: Patient had additional fluid removed from right chest via thoracentesis this a.m. and feels better in terms of pain and breathing. Exam Vital Signs Temp Pulse Resp BP Pulse Ox O2 Del Method O2 Flow Rate 97.2 F 111 H 23 H 144/81 H 93 L Oxy Mask 5 04/04/24 08:00 04/04/24 08:00 04/04/24 08:00 04/04/24 08:00 04/04/24 08:00 04/04/24 08:00 04/04/24 08:00 Narrative Exam Appearing better following the thoracentesis. Objective Labs 04/04/24 04:34 04/04/24 04:34 Labs: Laboratory Results - last 24 hr 04/04/24 04/04/24 04:34 08:39 WBC 19.1 H RBC 3.01 L Hgb 8.3 L Hct 25.1 L MCV 83 MCH 27.6 MCHC 33.1 RDW Std Deviation 41.1 Plt Count 438 Neut % (Auto) 82 H Lymph % (Auto) 6 L [place] % (Auto) 10 Eos % (Auto) 0 Baso % (Auto) 0 Neut # (Auto) 15.7 H Lymph # (Auto) 1.2 [place] # (Auto) 1.8 H Eos # (Auto) 0.0 Baso # (Auto) 0.0 Immature Gran # (Auto) 0.28 H Absolute Nucleated RBC 0.04 H Immature Gran % 2 H Nucleated RBC % 0 PT 12.0 INR 1.1 APTT 22.9 Sodium 131 L Potassium 4.8 Chloride 96 L Carbon Dioxide 22.9 Anion Gap 12 BUN 30 H Creatinine 1.2 Estim Creat Clear Calc 41.1 L eGFR 47 L BUN/Creatinine Ratio 25 H Glucose 191 H Calculated Osmolality 273 L Calcium 8.6 Corrected Calcium 8.8 Total Bilirubin 0.4 AST 23 ALT 11 Alkaline Phosphatase 92 Total Protein 6.5 Albumin 3.7 Globulin 2.8 Albumin/Globulin Ratio 1.3 Assessment & Plan A&P Narrative 1. 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 Underwent radical resection in [place] 12/27/2023 while apparently localized in left proximal upper extremity. 3. Has had some relief with both pain and breathing difficulties with thoracentesis procedures. Currently on tramadol p.o. and parenteral hydromorphone as needed. 3. Due to the rare and aggressive malignancy, previously discussed the case with Dr. Garry Alexander [facility], sarcoma specialist, who was scheduled to see patient as outpatient. 4. it is unlikely that any systemic therapy will benefit patient significantly in this aggressive and rapidly spreading sarcoma according to latest literature. 5. Family expressed wishes to have patient transferred to a facility in [place] with hospice organization that a relative works for. Time Spent With Patient Time: Total time spent is greater than 50% in coordination of care (as documented) at patient's floor/unit and/or counseling patient:
[2024-04-04 12:00] VITALS: BP 131/65; PULSE 105; RESP 18; TEMP 36.2; O2SAT 92
[2024-04-04] MEDS: traMADol HCL 50 MG TABLET PO ×2 (12:15→19:17)
--- NOTE | 2024-04-04 12:21 | PC.CC ---
PASSR Level 1 complete and downloaded; Level 2 not required.
[2024-04-04] MEDS: ACETAMINOPHEN 325 MG TABLET 650 MG PO (13:15)
[2024-04-04] MEDS: HEPARIN SOD INJ 5000 UNIT/ML VIAL SC ×2 (13:15→22:41)
[2024-04-04] MEDS: SENNA TABLET 1 TAB PO (13:16)
--- NOTE | 2024-04-04 14:05 | PD.NEPHPROG ---
Documentation for date of: 04/04/24 Subjective Subjective Interval history: Ms. Louis is a 78-year-old lady who unfortunately had a left arm growth and workup showed that she has sarcoma and has been seen by orthopedics in [place] and underwent radical resection of the left shoulder soft tissue mass 12/27/2023 which was 6.3 cm the longest dimension. 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 According to pathology reviewed at [place] [facility] was negative corroborating no support for Albert's with other immunohistochemical support for rhabdomyosarcoma or melanoma. Given the size AJCC pT2. Pt now referred for adjuvant treatment at the cancer center. Patient has a past medical history of diabetes mellitus. Patient presented to the emergency department with significant shortness of breath, nausea, vomiting. In the emergency department WBC 11.6, hemoglobin 10.6, platelets 480. Sodium 131, potassium 4.3, creatinine 0.9, glucose 236, lactic acid 2.9 calcium 9.2, LFTs normal,, albumin 4.2, TSH 1.96, Pro-Alonso normal. Chest x-ray showed bilateral metastatic pulmonary nodules large right and moderate left pleural effusion. 03/2024 PET scan showed extensive metastatic disease. Patient admitted to medical floor for shortness of breath and need for thoracentesis. 04/02/2024 patient currently seen in medical floor. Still having significant shortness of breath. This morning she had rapid response for hypoxic respiratory failure. Talked to Dr. Stringer-did thoracentesis and 700 mL fluid was drained. However seems to have loculated pleural effusion. Will request IR for another paracentesis in AM. Dr. Hsu was consulted. Patient complaining of pain everywhere. Tramadol,, Tylenol was given. Prognosis remains guarded. Did discuss CODE STATUS with the patient and she requested DNR. Once Dr. Hsu evaluates patient -- Goals of care to be discussed with family 04/04/2024 patient for the last few days have been doing poorly. She has hypoxic respiratory failure needing 5 L of oxygen. Supposed to be transferred to rehab. However she seems to be needing 5 L of oxygen. S/p R thoracentesis and 2 L of fluid was drained. Patient seen by Dr. Hsu. Decided no further management for her metastatic sarcoma. Prognosis poor. Entire family aware. Family at bedside who had several questions which were answered to their satisfaction. Review of Systems Review of Systems Narrative Review of Systems: CONSTITUTIONAL: Patient denies any fever, chills. Complaining of fatigue HEENT: Denies any visual disturbances or hearing problems. CARDIOVASCULAR: complaining of provide atypical left rib cage pain PULMONARY: Patient complaining of shortness of breath GASTROINTESTINAL: Patient denies any abdominal pain, constipation, nausea, vomiting, diarrhea. GENITOURINARY: Patient denies any urinary symptoms of burning or frequency or hematuria, denies any form in the urine. SKIN: Denies any rash. MUSCULOSKELETAL: Complaining of pain in the left arm NEUROLOGICAL: Denies any neurological problems of strokes, seizures or confusion. Denies any memory problems. Exam Vital Signs Temp Pulse Resp BP Pulse Ox O2 Del Method O2 Flow Rate 36.2 C 90 18 137/82 H 94 L Room Air 4 04/04/24 16:00 04/04/24 16:00 04/04/24 16:00 04/04/24 16:00 04/04/24 16:00 04/04/24 16:00 04/04/24 12:00 Narrative Exam GENERAL APPEARANCE: Patient short of breath NECK: Neck supple, no JVD or bruit CARDIOVASCULAR: Heart regular, no murmurs LUNGS/CHEST: Decreased breath sounds bilaterally ABDOMEN: Soft, nontender, nondistended. No masses. Normal bowel sounds. EXTREMITIES: No edema, clubbing or cyanosis. Left arm mass removed SKIN: Skin exam normal without any rashes MUSCULOSKELETAL: in bed NEUROLOGICAL : No neurological deficits Objective Labs 04/04/24 04:34 04/04/24 04:34 Labs: Laboratory Results - last 24 hr 04/04/24 04/04/24 04:34 08:39 WBC 19.1 H RBC 3.01 L Hgb 8.3 L Hct 25.1 L MCV 83 MCH 27.6 MCHC 33.1 RDW Std Deviation 41.1 Plt Count 438 Neut % (Auto) 82 H Lymph % (Auto) 6 L [place] % (Auto) 10 Eos % (Auto) 0 Baso % (Auto) 0 Neut # (Auto) 15.7 H Lymph # (Auto) 1.2 [place] # (Auto) 1.8 H Eos # (Auto) 0.0 Baso # (Auto) 0.0 Immature Gran # (Auto) 0.28 H Absolute Nucleated RBC 0.04 H Immature Gran % 2 H Nucleated RBC % 0 PT 12.0 INR 1.1 APTT 22.9 Sodium 131 L Potassium 4.8 Chloride 96 L Carbon Dioxide 22.9 Anion Gap 12 BUN 30 H Creatinine 1.2 Estim Creat Clear Calc 41.1 L eGFR 47 L BUN/Creatinine Ratio 25 H Glucose 191 H Calculated Osmolality 273 L Calcium 8.6 Corrected Calcium 8.8 Total Bilirubin 0.4 AST 23 ALT 11 Alkaline Phosphatase 92 Total Protein 6.5 Albumin 3.7 Globulin 2.8 Albumin/Globulin Ratio 1.3 Assessment & Plan Assessment and plan (1) Acute hypoxic respiratory failure: Status: Acute (2) Acidosis, lactic: Status: Acute (3) Leukocytosis: Status: Acute (4) Large pleural effusion: Status: Acute (5) Metastatic sarcoma to lung: Status: Acute (6) Diabetes: Status: Acute Additional Assessment & Plan Additional Plan: (1) Acute hypoxic respiratory failure: Status: Acute Assessment and plan: Patient presented with acute hypoxic respiratory failure secondary to extensive metastatic cancer from sarcoma and also bilateral large pleural effusions. Dr. Stringer did right-sided thoracentesis and 700 mL fluid was removed. Owing to her extensive metastatic disease, bilateral pleural effusions she might benefit from comfort care. Dr. Hsu came and saw patient. Goals of care will be discussed with family -they agreed for DNR. However they want her to go to rehab. Today patient had lateral thoracentesis done by Dr. Robledo. (2) Acidosis, lactic: Status: Acute Assessment and plan: Gentle IV fluids were given. Lactic acid levels improved. (3) Leukocytosis: Status: Acute Assessment and plan: No evidence of any infection. Question stress response. Zosyn was given (4) Large pleural effusion: Status: Acute Assessment and plan: s/p rt thoracentesis. (5) Metastatic sarcoma to lung: Status: Acute Assessment and plan: Metastatic sarcoma to the lung and bones. Dr. Hsu was consulted. Patient complaining of generalized pain. Tramadol, Tylenol given. (6) Diabetes: Status: Acute Assessment and plan: Accu-Cheks, sliding scale
[2024-04-04] MEDS: VANCOMYCIN/WATER 1250 MG IVPB 250 ML 120 MG IV ×2 (14:32→15:36)
--- NOTE | 2024-04-04 14:35 | PC.SS ---
SS met with pt and family (and talked to Soo by phone) about pt d/c to [facility] with or without [facility]. Crystal from [facility] states they work with [facility] or [facility]. SS has informed pt and family. SS provided them with brochures to [facility], [facility], [facility], [facility], [facility], and [facility]. Family has not decided to send pt with [facility]ospice Services vs pt working with PT for insurance authorization.
[2024-04-04] MEDS: HYDROmorphone INJ 2 MG/ML VIAL 1 MG IVP ×2 (14:37→22:34)
--- NOTE | 2024-04-04 15:54 | PC.SS ---
SS met with son who is decided for pt not to d/c with [facility] at this time. SS has attempted to contact [employer], patient's health insurance for insurance authorization but was only able to leave voicemail.
[2024-04-04 15:56] VITALS: BMI 31.4
[2024-04-04 16:00] VITALS: BP 137/82; PULSE 90; RESP 18; TEMP 36.2; O2SAT 94
[2024-04-04 20:00] VITALS: BP 113/54; PULSE 102; RESP 18; TEMP 36.1; O2SAT 95
[2024-04-05] VITALS: BP 124/52; PULSE 92; RESP 18; TEMP 36.2; O2SAT 98
[2024-04-05] MEDS: traMADol HCL 50 MG TABLET PO ×3 (00:55→11:34)
[2024-04-05] MEDS: ACETAMINOPHEN 325 MG TABLET 650 MG PO (03:21)
[2024-04-05] MEDS: HYDROmorphone INJ 2 MG/ML VIAL 1 MG IVP ×2 (03:35→07:38)
[2024-04-05 04:00] VITALS: BP 126/59; PULSE 105; RESP 18; TEMP 36.1; O2SAT 98
[2024-04-05] MEDS: PIPER/TAZO 3.375 GM 3.375 GM/50 ML BAG IV (05:28)
[2024-04-05] MEDS: HEPARIN SOD INJ 5000 UNIT/ML VIAL SC (05:32)
[2024-04-05 05:58] LABS: Basophils % (Auto) 0 % (0-2.5); Eosinophils # (Auto) 0.1 Thou/mm3 (0.0-0.5); Eosinophils % (Auto) 0 % (0-10); Hematocrit 21.5 % (36.0-46.0); Immature Granulocytes % (Auto) 2 % (0-0); Immature Granulocytes Auto 0.34 Thou/mm3 (0.00-0.00); Lymphocytes # (Auto) 0.9 Thou/mm3 (1.0-4.8); Lymphocytes % (Auto) 5 % (10-50); Mean Corpuscular Hemoglobin 27.5 pg (25.0-35.0); Mean Corpuscular Volume 83 fL (80-100); Monocytes # (Auto) 1.7 Thou/mm3 (0.0-0.8); Monocytes % (Auto) 10 % (0-12); Neutrophils # (Auto) 14.7 Thou/mm3 (1.8-7.7); Neutrophils % (Auto) 83 % (37-80); Nucleated Red Blood Cell # 0.05 Thou/mm3 (0.00-0.00); Nucleated Red Blood Cell % 0 /100 WBC (0); Platelet Count 421 Thou/mm3 (140-440); RDW Standard Deviation 41.8 fL (36.4-46.3); Red Blood Count 2.58 Miln/mm3 (4.00-5.20); White Blood Count 17.9 Thou/mm3 (3.6-11.0)
[2024-04-05 06:27] LABS: Alanine Aminotransferase 8 U/L (10-49); Albumin, Serum 3.1 gm/dL (3.4-4.8); Albumin/Globulin Ratio 1.1 (1.2-2.2); Alkaline Phosphatase 82 U/L (46-116); Anion Gap 7 (7-16); Aspartate Amino Transferase 17 U/L (0-34); BUN/Creatinine Ratio 23 Ratio (12-20); Bilirubin,Total 0.4 mg/dL (0.3-1.2); Blood Urea Nitrogen 30 mg/dL (9-23); Calcium 8.3 mg/dL (8.3-10.6); Carbon Dioxide 26.7 mMol/L (20.0-31.0); Chloride 97 mMol/L (98-107); Creatinine (Component) 1.3 mg/dL (0.6-1.3); Estimated Creatinine Clearance 37.9 mL/min (>60); Globulin 2.7 gm/dL (2.3-3.5); Glucose 206 mg/dL (74-106); Osmolality,Calculated 274 (275-295); Potassium 4.1 mMol/L (3.4-5.1); Sodium 131 mMol/L (136-145); Total Protein 5.8 gm/dL (5.7-8.2); eGFR 42 See Note
[2024-04-05 06:36] LABS: Hemoglobin 7.1 g/dL (12.0-16.0)
[2024-04-05] MEDS: INSULIN LISPRO (AdmeLOG) 1 UNIT/0.01 ML UNIT SC ×2 (07:37→11:39)
[2024-04-05 08:00] VITALS: BP 127/63; PULSE 95; RESP 15; TEMP 36.1; O2SAT 98
[2024-04-05] MEDS: INSULIN GLARGINE (Lantus) 5 UNIT/0.05 ML (PER 5 UNITS) 10 UNIT SC (09:40)
[2024-04-05] MEDS: SENNA TABLET 1 TAB PO (09:40)
[2024-04-05] MEDS: POLYETHYLENE GLYCOL 17 GM PACKET PO (09:41)
[2024-04-05] MEDS: LORazepam 2 MG/ML VIAL 0.5 MG IVP (09:41)
--- NOTE | 2024-04-05 09:44 | XR_ITS ---
Examination: AP chest single view TECHNIQUE: AP portable semiupright chest single view Exam date and time: April 05, 2014 1024 hours Comparison April 01, 2024 INDICATIONS: Shortness of breath difficulty breathing this week, metastatic pulmonary nodular disease with malignant bilateral pleural effusions FINDINGS: Bilateral metastatic pulmonary nodules again noted Mild prominence left ventricle Moderate right mild left pleural effusions IMPRESSION: Pulmonary nodular metastatic disease Moderate right mild left pleural effusions
--- NOTE | 2024-04-05 10:02 | PC.SS ---
Addendum entered by Oanh Slade [facility] [place] 04/05/24 12:18: Was informed that [facility] will bring the portable oxygen for the patient and the family will transport the patient via private vehicle. Sent updated notes to [facility] via [employer] and file exchanged PASRR to facility. Family and bed side nurse aware with plan. Addendum entered by Oanh Slade [facility] [place] 04/05/24 11:27: Pending ETA from [facility]. Addendum entered by Oanh Slade [facility] [place] 04/05/24 10:52: Referral sent to [facility] referral via [employer]. Informed Amee Sharma of hospice referral sent. Updated Dr. Juarez on discharge plan. [facility] informed that they are able to accept the patient on 5L of oxygen and are able to provide transportation for the patient. Addendum entered by Oanh Slade [facility] [place] 04/05/24 10:22: Received call from Monae with [facility], she informed no authorization is required if family wishes to peruse with hospice services at the hospice agency would take over. Monae informs [facility] does not cover services or placement only for skilled needs if authorized. Addendum entered by Oanh Slade [facility] [place] 04/05/24 10:12: Attempted contact with Monae with [facility], she was unavailable and voicemail was left. Original Note: SS follow up: met with patient and patient's son Grady at bed side . The discharge plan is to go to [facility] with hospice services. The patient's family has selected [facility] as their preferred agency. [facility] is able to provide transportation for the patient along with providing oxygen requirements. Contact provided for [facility] is Lashawn Kiser . TRUSS DESIGNER Contacted Dr. Rubalcava to make aware of the need for hospice order.
[2024-04-05 10:22] LABS: Lactate (Lactic Acid) 1.9 mMol/L (0.4-2.0)
[2024-04-05 10:28] LABS: Basophils % (Auto) 0 % (0-2.5); Eosinophils # (Auto) 0.1 Thou/mm3 (0.0-0.5); Eosinophils % (Auto) 1 % (0-10); Hematocrit 21.1 % (36.0-46.0); Immature Granulocytes % (Auto) 2 % (0-0); Immature Granulocytes Auto 0.34 Thou/mm3 (0.00-0.00); Lymphocytes % (Auto) 6 % (10-50); Mean Corpuscular HGB Conc 32.7 g/dl (31.0-37.0); Mean Corpuscular Hemoglobin 27.1 pg (25.0-35.0); Mean Corpuscular Volume 83 fL (80-100); Monocytes # (Auto) 1.7 Thou/mm3 (0.0-0.8); Monocytes % (Auto) 10 % (0-12); Neutrophils # (Auto) 14.7 Thou/mm3 (1.8-7.7); Neutrophils % (Auto) 82 % (37-80); Nucleated Red Blood Cell # 0.07 Thou/mm3 (0.00-0.00); Nucleated Red Blood Cell % 0 /100 WBC (0); Platelet Count 403 Thou/mm3 (140-440); RDW Standard Deviation 41.6 fL (36.4-46.3); Red Blood Count 2.55 Miln/mm3 (4.00-5.20)
[2024-04-05 10:33] LABS: Hemoglobin 6.9 g/dL (12.0-16.0)
--- NOTE | 2024-04-05 11:02 | ESDS_ITS ---
Planned Discharge Date 04/05/24 DS: Providers Provider Date of admission: 04/01/24 15:02 Primary care physician: Kathrine Rubalcava MD Admitting Provider: Kathrine Rubalcava MD Attending Provider on Admission: Arnoldo Purdy MD Consults: 04/02/24 12:59 Consult to Oncology Routine Comment: metastatic sarcoma Consulting Provider: Reji Hsu 04/02/24 13:00 Consult to Preschool Assistant Teacher Routine Comment: rt pleural effusion, sob Consulting Provider: Smith Stringer I 04/03/24 17:10 Referral Physical Therapy Routine Comment: Physician Instructions: 04/05/24 10:27 Referral Hospice Stat Comment: Attending Provider on DC: Flaco Rankin MD Discharging Provider: Flaco Rankin MD DS: Diagnosis Problem List Completed Was Problem List Reviewed/Reconciled?: Yes Hospital Course Hospital Course Hospital course: A 78-year-old lady with history of left arm sarcoma with metastasis presented to the ED due to significant shortness of breath, nausea and vomiting. At the ED patient was found to have WBC of 11.6, hemoglobin of 10.6, lactic acid 2.9, chest x-ray showed bilateral metastasis pulmonary nodules with bilateral pleural effusion. Patient was admitted for management of acute hypoxic respiratory failure most likely secondary to pleural effusion and pneumonia secondary to malignant metastasis. Patient was started on antibiotics thoracentesis proced ure was done first 1 was done at bedside on 02 April which drained 750 mL of fluid from the right lung, another procedure was done on 04 April and drained 2 L of serosanguineous fluid. Patient felt significant improvement after the procedure however she continued to have oxygen requirement of [address] Hsu was consulted he mentioned that there is very few to do for her cancer at this time and she has poor prognosis. Discussion with the family regarding these findings was conducted family agreed to change the patient CODE STATUS to DNR, and decided to pursue hospice care upon discharge. Before discharge hemoglobin was noted to be 6.9, discussion regarding blood transfusion was done however family mentioned that the mother does not want any blood transfusion or any blood products transfusion. At this time patient will be discharged to [facility]. - Patient's plan and care discussed with my attending, Dr. Gini Rankin MD Internal Medicine PGY-2 Status at Discharge Cognitive/behavioral status at discharge: Alert and awake Functional status at discharge: wheelchair bound Overall status at discharge: patient is not back to baseline Time Spent with Patient Time attestation: Total time spent providing and/or coordinating discharge services: Time spent: Greater than 30 minutes Exam Vital Signs Temp Pulse Resp BP Pulse Ox O2 Del Method O2 Flow Rate 96.9 F 95 15 127/63 98 Oxy Mask 5 04/05/24 08:00 04/05/24 08:00 04/05/24 08:00 04/05/24 08:00 04/05/24 08:00 04/05/24 08:00 04/05/24 08:00 Narrative Exam GEN: AOx3, able to speak full sentences HEENT: NC/AC, oral mucosa moist, neck supple CVS: RRR, S1-S2 present, no murmurs appreciated RESP: Decreased air entry bilaterally, coarse crepitations bilaterally. GI: soft,non distended, non tender, NBS MSK: able to move all 4 limbs, no lower extremity edema SKIN: warm and dry SECTION CHIEF: CN II-XII and Sensation grossly intact. Discharge Plan Plan Patient Disposition: [place] [facility] [place] Disposition Comment: Hospice Patient condition on transfer: Stable Care Plan Goals: Follow-up with your primary care physician within 1 week from discharge Follow-up with the oncologist if needed Dr. Hsu within 1 week from discharge Use medications as prescribed Follow-up with the hospice care doctor as needed Use laxatives to achieve 1 bowel movement per day Prescriptions/Referrals Prescriptions/Med Rec: New amoxicillin-pot clavulanate 875-125 mg tablet 1 tab PO BID 5 Days Qty: 10 0RF doxycycline hyclate 100 mg capsule 100 mg PO BID 5 Days Qty: 10 0RF hydrocodone-acetaminophen 5-325 mg tablet 2 tab PO Q6H MDD 40mg PRN (Reason: pain (scale score 4-6)) 5 Days Qty: 30 0RF sennosides [Senna Laxative] 8.6 mg tablet 8.6 mg PO QDAY PRN (Reason: constipation) 15 Days Qty: 15 0RF Continued meloxicam 15 mg tablet 15 mg PO DAILY Patient Comments: TAKE 1 TABLET BY MOUTH ONCE DAILY NEEDED aspirin 81 mg tablet,chewable 81 mg PO Q12H Patient Comments: CHEW AND SWALLOW 1 TABLET BY MOUTH EVERY 12 HOURS SCHEDULED FOR 28 DAYS Rx Instructions: Chew and swallow albuterol sulfate 90 mcg/actuation HFA aerosol inhaler 1 puff INHALATION Q8HR Patient Comments: INHALE 1 PUFF BY MOUTH THREE TIMES DAILY cyclobenzaprine 5 mg tablet 5 mg PO Q12H Patient Comments: TAKE 1 TABLET BY MOUTH TWICE DAILY NEEDED Discontinued tramadol 50 mg tablet 50 mg PO Q6H PRN (Reason: pain) Patient Comments: TAKE 1 TO 2 TABLETS BY MOUTH EVERY 6 HOURS NEEDED Rx Instructions: take 1-2 tablets Referrals: Kathrine Rubalcava MD [Primary Care Provider] - Patient/Caregiver Discharge Instructions Discharge Activity: activity as tolerated Education Materials: Thoracentesis Dc, Starting Hospice, Hospice The Importance of ..., Hospice Dyspnea Care Print Language: [place] Activity Restrictions/Additional Instructions: F/U WITH [facility] Stand Alone Forms: [employer] Award Info., Patient Portal Info Letter Discharge Order Discharge Orders: Discharge (Routine); Ordered 04/05/24 Ordered By: Flaco Rankin Quality Discharge Quality Measures VTE prophylaxis MD Attestestation MD Attestation Patient seen and examined with resident physician Dr. Sam. Note reviewed, agree with findings and recommendations she is going to be discharged to rehab with hospice.
[2024-04-05 11:52] VITALS: BP 140/75; PULSE 106; RESP 15; TEMP 36; O2SAT 95
[2024-04-05 12:00] VITALS: PULSE 105
== END 2024-04-05 13:05 | disposition skilled nursing facility (03) | DRG 180 ==
LOC: SERX 15:00 → SERHOLD 16:13 → S3SX 17:26
PROVIDERS: Nurse Practitioner Family; Student in an Organized Health Care Education/Training Program; Admitting Provider Internal Medicine; Emergency Provider Emergency Medicine; PCP Internal Medicine; Visit Provider Student in an Organized Health Care Education/Training Program
DX: C78.01 Secondary malignant neoplasm of right lung (principal); J18.9 Pneumonia, unspecified organism; J96.01 Acute respiratory failure with hypoxia; C49.12 Malignant neoplasm of connective and soft tissue of left upper limb, including shoulder; J91.0 Malignant pleural effusion; C79.51 Secondary malignant neoplasm of bone; E87.20 Acidosis, unspecified; C78.02 Secondary malignant neoplasm of left lung; E11.9 Type 2 diabetes mellitus without complications; J45.909 Unspecified asthma, uncomplicated; Z66 Do not resuscitate; Z51.5 Encounter for palliative care; Z79.82 Long term (current) use of aspirin; Z79.1 Long term (current) use of non-steroidal anti-inflammatories (NSAID); Z79.899 Other long term (current) drug therapy; Z91.013 Allergy to seafood
CPT/HCPCS: 36415; 71045; 80053; 80061; 83036; 83605; 83880; 84145; 84443; 84484; 85025; 85610; 85730; 87040; 87081; 87400; 87811; 93005; 93225; 94762; 97162; 99285; C1729; J1643; J1815; J1940; J2060; J2543; J3372; J3490; J7030; J7050; Q0162; A9270